=== PATIENT | male | born 1995 | race Caucasian/White ===

== ENCOUNTER → 2022-05-18 14:59 | Outpatient (BNVA) | payer SELFPAY | PROVIDERS: Visit Provider Physician Assistant Medical | DX: Z02.1 Encounter for pre-employment examination (principal) ==

== ENCOUNTER 2022-12-23 13:16 | Emergency (ER) | payer OTHER, MEDICAID, SELFPAY ==
[2022-12-23 13:19] VITALS: BP 122/78; BP 141/92; PULSE 102; PULSE 108; RESP 20; TEMP 37.2; O2SAT 94; O2SAT 95; BMI 27.7
--- NOTE | 2022-12-23 13:41 | PC.NURSE ---
Pt arrived via EMS, pt mom called and was concerned about a text message he had sent, however patient declines SI/HI at this time. PD felt the patient did not need to be sectioned, however patient agreed to come to the hospital. Now that the patient is here he is pacing and upset that he is being kidnapped and here against his will. updated.
--- NOTE | 2022-12-23 14:07 | ED_ITS ---
HPI - Psych General Chief Complaint: Psychiatric Symptoms Stated Complaint: SI Time Seen by Provider: 12/23/22 13:32 Source: patient Mode of arrival: ambulatory History of Present Illness HPI Narrative: 27-year-old male with past medical history of substance abuse presenting to the ED for suspected substance abuse, and mother was concerned about text messages she received from patient. PD on scene and did not need to section patient, c trae to ED willingly. Patient coming from [facility], reports sobriety from ETOH/illicit substances since his admission to this house a few days ago. Denies SI/HI. States woke up outside the sober house, reports he fell asleep outside the doors. Denies injury, CP/SOB, abdominal pain MD complaint: substance abuse Related Data Home Medications Medication Instructions Recorded Confirmed albuterol sulfate 90 mcg/actuation 2 puff inhalation Q4H PRN 12/23/22 12/23/22 aerosol inhaler (ProAir HFA) Shortness Of Breath Or Wheezing amitriptyline 50 mg tablet 50 mg PO BEDTIME insomnia 12/23/22 12/23/22 clonidine HCl 0.2 mg tablet 0.2 mg PO TID PRN anxiety 12/23/22 12/23/22 gabapentin 800 mg tablet 800 mg PO TID 12/23/22 12/23/22 loratadine 10 mg tablet 10 mg PO DAILY PRN allergies 12/23/22 12/23/22 methocarbamol 500 mg tablet 1,000 mg PO TID PRN Pain, Moderate 12/23/22 12/23/22 mirtazapine 15 mg tablet 15 mg PO BEDTIME insomnia 12/23/22 12/23/22 mometasone-formoterol HFA 200 2 puff inhalation DAILY 12/23/22 12/23/22 mcg-5 mcg/actuation aerosol inhaler (Dulera) omeprazole 20 mg capsule,delayed 20 mg PO DAILY@0630 12/23/22 12/23/22 release Allergies Allergy/AdvReac Type Severity Reaction Status Date / Time No Known Allergies Allergy Verified 12/23/22 13:55 Review of Systems Review of Systems: Constitutional: No Fever, No Chills, No Fatigue, No Malaise ENT/Mouth: No Hearing loss, No Ear Pain, No Nasal Congestion, No sore throat, No Rhinorrhea, No Swallowing Difficulty Eyes: No Eye Pain, No Swelling, No Redness, No Vision Changes Cardiovascular: No Chest Pain, No SOB, No Edema, No Palpitations Respiratory: No Cough, No Sputum, No Dyspnea Gastrointestinal: No Nausea, No Vomiting, No Diarrhea, No Constipation, No Abdominal pain Genitourinary: No Dysuria, No Flank Pain, No Urinary Flow Changes, No Hesitancy Musculoskeletal: No joint pain, No Myalgias, No Joint Swelling Skin: No Skin Lesions, No rash Neuro: No Weakness, No Numbness, No Paresthesias, No Loss of Consciousness, No Dizziness, No Headache Psych: No Anxiety/Panic, No Depression, No SI/HI/AH/VH, + Social Issues Yes all other systems are reviewed and are negative Constitutional: Constitutional: Reports as per [facility] Past Medical History Attestation statement: The following information was validated with the patient. Social History Social History Alcohol intake: current Alcohol type: hard liquor Use of substances other than those prescribed or required for medical reasons: No Advance Directives: No Healthcare Proxy: No Guardian: No Physical Exam Vital Signs: Vital Signs: Last Vital Signs Temp 99.2 F 12/23/22 15:47 Pulse 120 H 12/23/22 15:47 Resp 20 12/23/22 13:19 BP 143/82 H 12/23/22 15:47 Pulse Ox 98 12/23/22 15:47 O2 Del Method Room Air 12/23/22 13:19 BMI result Body Mass Index 27.7 Const: Other: Appears under the influence General: cooperative, comfortable and no acute distress Orientation/consciousness: patient oriented x3 HEENT: Head: Yes normal to inspection and Yes atraumatic Ears: hearing grossly normal bilaterally General nose exam: Normal external nose present Face and sinus: Yes normal facial exam Eyes: General: appearance normal, both eyes and all related structures Pupils: Equal, round and reactive pupils present EOM: EOMs intact bilaterally Neck: Neck: Yes normal visual inspection and Yes no meningeal signs Resp: Effort & Inspection: normal respiratory effort and no respiratory distress Auscultation: clear to auscultation bilaterally Cardio: Rate: regular rate Heart sounds: S1 normal heart sound present and S2 normal heart sound present GI: Inspection: Yes normal to inspection Palpation (GI): Soft to palpation, nontender, no guarding and not rigid Skin: Rashes: no rashes Wounds: no wounds Neuro: General: patient oriented x3, gait normal, tone normal, moves all extremities, no meningeal signs, no focal motor deficits and CN's II-XI intact bilaterally Cranial nerves: Yes Equal, round and reactive pupils present Gait exam (Neuro): Normal gait present Extrem: General: Yes normal to inspection Psych: Thought content: suicidality and no homicidality Course Course Course Narrative: -labs reassuring. Tox screen positive for fentanyl, benzos, THC. Ethanol negative -patient was evaluated by care team and recommend [facility] follow-up in the morning. Section 12 signed and in patient's chart, patient becoming agitated. Medicated with 2 mg p.o. Ativan. Physician observation initiated -1800--ED care transferred to CARL Melendez pending [facility]SU follow-up. Medications Administered Generic Name Dose Route Start Last Admin Trade Name Freq PRN Reason Stop Dose Admin Nicotine Polacrilex 4 mg 12/23/22 17:23 12/23/22 17:50 Nicotine Polacrilex 2 Mg Gum BUCCAL 4 mg Q1H PRN Administration Nicotine Cravings Discontinued Medications Generic Name Dose Route Start Last Admin Trade Name Freq PRN Reason Stop Dose Admin Lorazepam 2 mg 12/23/22 17:08 12/23/22 17:12 Lorazepam 1 Mg Tablet PO 12/23/22 17:09 2 mg ONCE ONE Administration Medical Decision Making Medical Decision Making [facility] Narrative: 27-year-old male with past medical history of substance abuse presenting to the ED for suspected substance abuse, and mother was concerned about text messages she received from patient. On exam mildly tachycardic, pacing around behavioral health POD, appears under the influence, cooperative, denies SI/HI. Concern for substance abuse vs depression/reported comments that were concerning to mother. Rule out organic causes Plan: Labs, ethanol, drug screen, CARE team consult Please refer to course for remaining clinical decision making, interpretation of labs/imaging results, and discussions with consultants and/or family members. Differential Diagnosis Differential Diagnoses: The differential diagnosis associated with the presentation includes As above Admission/Observation Consideration of admission/observation: Escalation of care including admission/observation considered Lab Data [facility] Lab Attestation statement: I reviewed the patient's lab results. 12/23/22 14:53 12/23/22 14:53 Labs: Lab Results 12/23/22 12/23/22 12/23/22 Range/Units 13:57 13:57 13:57 WBC (4.8-10.8) X10*3/uL RBC (4.60-5.80) X10*6/uL Hgb (14.0-18.0) g/dl Hct (42.0-52.0) % MCV (80.0-98.0) fL MCH (27.0-33.0) pg MCHC (31.0-36.0) g/dl RDW (11.0-16.0) % Plt Count (160-400) X10*3/uL MPV (9.4-12.4) fL Immature Gran % (Auto) (0.0-0.4) % Neut % (Auto) (45-73) % Lymph % (Auto) (20-40) % [place] % (Auto) (2-11) % Eos % (Auto) (0-4) % Baso % (Auto) (0-2) % Lymph # (Auto) (1.2-4.9) X10*3/uL [place] # (Auto) (0.1-1.2) X10*3/uL Eos # (Auto) (0.0-0.4) X10*3/uL Baso # (Auto) (0.0-0.2) X10*3/uL Abs Immat Gran (auto) (0.00-0.03) X10*3/uL Absolute Neuts (auto) (2.0-8.3) x10*3/uL Absolute Nucleated RBC (0.0-0.012) X10*3/uL Nucleated RBC % (auto) (0.0-0.2) /100WBC Sodium (135-145) mmol/L Potassium (3.3-5.1) mmol/L Chloride (96-108) mmol/L Carbon Dioxide (22-29) mmol/L Anion Gap (12-20) BUN (9-16) mg/dL Creatinine (0.5-1.4) mg/dL Estim Creat Clear Calc Estimated GFR Random Glucose (60-115) mg/dL Calcium (8.4-10.2) mg/dL Total Bilirubin (0.0-1.0) mg/dL Direct Bilirubin (0.0-0.5) mg/dL AST (5-37) U/L ALT (0-40) U/L Alkaline Phosphatase (39-117) U/L Total Protein (6.5-8.0) g/dL Albumin (3.5-5.0) g/dL Urine Color Yellow Urine Appearance Clear Urine pH 6.0 (5.0-9.0) Ur Specific [place] 1.020 (1.005-1.025) Urine Protein Negative (Neg-Trace) mg/dL Urine Glucose (UA) Negative (Negative) mg/dL Urine Ketones Negative (Negative) mg/dL Urine Blood Negative (Negative) Urine Nitrite Negative (Negative) Ur Leukocyte Esterase Negative (Negative) Salicylates (15-30) mg/dL Urine Opiates Screen Not Detected (Not Detect) Urine Fentanyl Screen POSITIVE H (Not Detect) Acetaminophen (<30) mcg/mL Ur Barbiturates Screen Not Detected (Not Detect) Ur Phencyclidine Scrn Not Detected (Not Detect) Ur Amphetamines Screen Not Detected (Not Detect) U Benzodiazepines Scrn POSITIVE H (Not Detect) Urine Cocaine Screen Not Detected (Not Detect) U Marijuana (THC) Screen POSITIVE H (Not Detect) Ethyl Alcohol mg/dL COVID-19 (DAI) Negative (Negative) COVID-19 Clin Com See Note 12/23/22 12/23/22 Range/Units 14:53 14:53 WBC 6.2 (4.8-10.8) X10*3/uL RBC 5.15 (4.60-5.80) X10*6/uL Hgb 16.1 (14.0-18.0) g/dl Hct 46.9 (42.0-52.0) % MCV 91.1 (80.0-98.0) fL MCH 31.3 (27.0-33.0) pg MCHC 34.3 (31.0-36.0) g/dl RDW 11.4 (11.0-16.0) % Plt Count 312 (160-400) X10*3/uL MPV 8.5 L (9.4-12.4) fL Immature Gran % (Auto) 0.2 (0.0-0.4) % Neut % (Auto) 45.8 (45-73) % Lymph % (Auto) 43.2 H (20-40) % [place] % (Auto) 5.3 (2-11) % Eos % (Auto) 4.0 (0-4) % Baso % (Auto) 1.5 (0-2) % Lymph # (Auto) 2.7 (1.2-4.9) X10*3/uL [place] # (Auto) 0.3 (0.1-1.2) X10*3/uL Eos # (Auto) 0.3 (0.0-0.4) X10*3/uL Baso # (Auto) 0.1 (0.0-0.2) X10*3/uL Abs Immat Gran (auto) 0.01 (0.00-0.03) X10*3/uL Absolute Neuts (auto) 2.8 (2.0-8.3) x10*3/uL Absolute Nucleated RBC 0.000 (0.0-0.012) X10*3/uL Nucleated RBC % (auto) 0.0 (0.0-0.2) /100WBC Sodium 143 (135-145) mmol/L Potassium 4.7 (3.3-5.1) mmol/L Chloride 105 (96-108) mmol/L Carbon Dioxide 30 H (22-29) mmol/L Anion Gap 13 (12-20) BUN 13 (9-16) mg/dL Creatinine 1.13 (0.5-1.4) mg/dL Estim Creat Clear Calc 109.9 Estimated GFR > 60 Random Glucose 96 (60-115) mg/dL Calcium 9.8 (8.4-10.2) mg/dL Total Bilirubin 0.3 (0.0-1.0) mg/dL Direct Bilirubin < 0.2 (0.0-0.5) mg/dL AST 20 (5-37) U/L ALT 13 (0-40) U/L Alkaline Phosphatase 93 (39-117) U/L Total Protein 7.2 (6.5-8.0) g/dL Albumin 4.7 (3.5-5.0) g/dL Urine Color Urine Appearance Urine pH (5.0-9.0) Ur Specific [place] (1.005-1.025) Urine Protein (Neg-Trace) mg/dL Urine Glucose (UA) (Negative) mg/dL Urine Ketones (Negative) mg/dL Urine Blood (Negative) Urine Nitrite (Negative) Ur Leukocyte Esterase (Negative) Salicylates < 5.0 L (15-30) mg/dL Urine Opiates Screen (Not Detect) Urine Fentanyl Screen (Not Detect) Acetaminophen < 17 (<30) mcg/mL Ur Barbiturates Screen (Not Detect) Ur Phencyclidine Scrn (Not Detect) Ur Amphetamines Screen (Not Detect) U Benzodiazepines Scrn (Not Detect) Urine Cocaine Screen (Not Detect) U Marijuana (THC) Screen (Not Detect) Ethyl Alcohol < 10 mg/dL COVID-19 (DAI) (Negative) COVID-19 Clin Com Radiology Impression Discussion of test interpretation with radiology: I have reviewed the radiologist's reading. External Record Review External record reviewed: Inpatient record, Office record, Outpatient record, Prior outpatient labs, Prior outpatient radiology, Primary care record and Outsi de ED record Discharge Plan Discharge Clinical Impression: Substance abuse Patient Disposition: Still a Patient Prescriptions: No Action gabapentin 800 mg tablet 800 mg PO TID amitriptyline 50 mg tablet 50 mg PO BEDTIME clonidine HCl 0.2 mg tablet 0.2 mg PO TID PRN (Reason: anxiety) mirtazapine 15 mg tablet 15 mg PO BEDTIME methocarbamol 500 mg tablet 1,000 mg PO TID PRN (Reason: Pain, Moderate) omeprazole 20 mg capsule,delayed release(DR/EC) 20 mg PO DAILY@0630 albuterol sulfate [ProAir HFA] 90 mcg/actuation HFA aerosol inhaler 2 puff INHALATION Q4H PRN (Reason: Shortness Of Breath Or Wheezing) loratadine 10 mg tablet 10 mg PO DAILY PRN (Reason: allergies) Dulera 200-5 mcg/actuation HFA aerosol inhaler 2 puff INHALATION DAILY Interventions: [place]-Suicide Risk Severity Scale Last Done: 12/23/22 13:39
[2022-12-23 14:09] LABS: Appearance Urine Clear; Color Urine Yellow; Glucose Urine UA Negative (Negative); Leukocyte Esterase Urine Negative (Negative); Nitrite Urine Negative (Negative); Urine Blood Negative (Negative); Urine Ketones Negative (Negative); Urine Protein Negative (Neg-Trace)
[2022-12-23 14:17] LABS: COVID-19 Test Negative (Negative); IDNOW Serial# BCCEAD1C
[2022-12-23 14:40] LABS: Amphetamine Screen Urine Not Detected (Not Detect); Barbiturates, Urine Not Detected (Not Detect); Benzodiazepines Screen Urine POSITIVE (Not Detect); Cannabinoid Screen Urine POSITIVE (Not Detect); Cocaine Screen Urine Not Detected (Not Detect); Fentanyl, urine POSITIVE (Not Detect); Opiate Screen Urine Not Detected (Not Detect); Phencyclidine Screen Urine Not Detected (Not Detect)
--- NOTE | 2022-12-23 14:42 | PC.NURSE ---
PT'S MOTHER (VALDO [phone]) CALLED. LEFT HER PHONE NUMBER IF ANY QUESTIONS.
[2022-12-23 14:57] LABS: MANUAL DIFF FLAG NO
[2022-12-23 14:59] LABS: Basophils Absolute Auto 0.1 X10*3/uL (0.0-0.2); Basophils Percent Auto 1.5 % (0-2); Eosinophils Absolute Auto 0.3 X10*3/uL (0.0-0.4); Hematocrit 46.9 % (42.0-52.0); Hemoglobin 16.1 g/dl (14.0-18.0); Imm Gran Abs Auto 0.01 X10*3/uL (0.00-0.03); Imm Gran Pct Auto 0.2 % (0.0-0.4); Lymphocytes Absolute Auto 2.7 X10*3/uL (1.2-4.9); Lymphocytes Percent Auto 43.2 % (20-40); Mean Corpuscular HGB Conc 34.3 g/dl (31.0-36.0); Mean Corpuscular Hemoglobin 31.3 pg (27.0-33.0); Mean Corpuscular Volume 91.1 fL (80.0-98.0); Mean Platelet Volume 8.5 fL (9.4-12.4); Monocytes Absolute Auto 0.3 X10*3/uL (0.1-1.2); Monocytes Percent Auto 5.3 % (2-11); Neutrophils Absolute Auto 2.8 x10*3/uL (2.0-8.3); Neutrophils Percent Auto 45.8 % (45-73); Platelet Count 312 X10*3/uL (160-400); Red Blood Count 5.15 X10*6/uL (4.60-5.80); Red Cell Distribution Width 11.4 % (11.0-16.0); White Blood Count 6.2 X10*3/uL (4.8-10.8)
[2022-12-23 15:26] LABS: Alanine Aminotransferase 13 U/L (0-40); Albumin Level 4.7 g/dL (3.5-5.0); Alkaline Phosphatase 93 U/L (39-117); Anion Gap 13 (12-20); Aspartate Amino Transferase 20 U/L (5-37); Bilirubin Direct < 0.2 mg/dL (0.0-0.5); Bilirubin Total 0.3 mg/dL (0.0-1.0); Blood Urea Nitrogen 13 mg/dL (9-16); Calcium 9.8 mg/dL (8.4-10.2); Carbon Dioxide 30 mmol/L (22-29); Chloride 105 mmol/L (96-108); Creatinine Clr Calc Pharmacy 109.9; Estimated Glomerular Filt Rate > 60; Ethanol < 10 mg/dL; Glucose Random 96 mg/dL (60-115); Potassium 4.7 mmol/L (3.3-5.1); Sodium 143 mmol/L (135-145); Total Protein 7.2 g/dL (6.5-8.0)
[2022-12-23 15:47] VITALS: BP 143/82; PULSE 120; TEMP 37.3; O2SAT 98
--- NOTE | 2022-12-23 15:57 | PC.NURSE ---
Care team clinician to bedside for eval.
[2022-12-23 16:27] LABS: Acetaminophen LAB < 17 mcg/mL (<30); Salicylate < 5.0 mg/dL (15-30)
--- NOTE | 2022-12-23 17:01 | PC.NURSE ---
Plan per CARE team is to re-eval tomorrow. Section 12 filled out and on chart, provider in agreement with plan.
[2022-12-23] MEDS: LORazepam 1 MG TABLET 2 MG PO ×2 (17:12→19:23)
[2022-12-23] MEDS: Nicotine Polacrilex 2 MG GUM 4 MG BUCCAL (17:50)
--- NOTE | 2022-12-23 18:07 | PHA.MEDREC ---
Pharmacy Consult ? Medication Reconciliation Pharmacy has completed the medication reconciliation. Reviewed med rec done by nursing (Celina). Patient confirmed medications.
--- NOTE | 2022-12-23 18:17 | PC.NURSE ---
Pt perseverative about being in the pod because he was sleepwalking pt displaying signs of short term memory loss, repeating questions that already have been answered, fixated on a human rights phone number not being on the wall. Pt provided with complaint line phone number. Pt labile, alternatively pleasant and angry.
[2022-12-23] MEDS: Gabapentin 400 MG CAPSULE 800 MG PO (19:23)
[2022-12-23] MEDS: Mirtazapine 15 MG TABLET PO (19:23)
[2022-12-23] MEDS: cloNIDine HCL 0.2 MG TABLET PO (20:11)
[2022-12-23] MEDS: Amitriptyline HCl 50 MG TABLET PO (20:11)
[2022-12-23] MEDS: methocarbamoL 500 MG TABLET 1000 MG PO (20:12)
[2022-12-23 20:15] VITALS: BP 143/93; PULSE 101; RESP 20; O2SAT 98
[2022-12-24 05:40] VITALS: BP 118/85; PULSE 79; RESP 18; O2SAT 98
[2022-12-24] MEDS: Omeprazole 20 MG CAPSULE.DR PO (05:58)
--- NOTE | 2022-12-24 06:08 | PC.NURSE ---
Patient slept through the night, no distress observed/reported, behavior confrontational and argumentative, constantly threatening to [facility] for keeping him here in the pod, patient was made aware why he is here and copy of section given to the patient, patient was seen by care team disposition pending/re-eval in the morning, patient has poor insight, Ativan 2 mg po administered at 1923 with + effect, medication compliant, will continue to monitor.
[2022-12-24] MEDS: Gabapentin 400 MG CAPSULE 800 MG PO ×3 (09:22→17:52)
[2022-12-24] MEDS: cloNIDine HCL 0.2 MG TABLET PO ×2 (10:10→17:22)
[2022-12-24] MEDS: LORazepam 1 MG TABLET 2 MG PO ×2 (10:10→13:44)
--- NOTE | 2022-12-24 10:30 | HE.PHANOTE ---
[facility]. PATIENT DOSE IS 140MG. GIVEN THREE BOTTLES ON 12/21 Don
[2022-12-24] MEDS: methADONE HCl 20 MG/2 ML ORAL.CONC 140 MG PO (10:31)
[2022-12-24] MEDS: Nicotine Polacrilex 2 MG GUM 4 MG BUCCAL ×2 (10:42→13:45)
--- NOTE | 2022-12-24 13:42 | MHC.CARE ---
patient to remain in ED, adult inpt LOC at this time, contact with [facility] needs to [facility] established prior to considering patient's return there. recent d/c from inpt w immediate relapse and mood lability, hx of several suicide attempts
[2022-12-24] MEDS: methocarbamoL 500 MG TABLET 1000 MG PO ×2 (13:53→21:25)
--- NOTE | 2022-12-24 14:06 | PC.NURSE ---
pt told by CARE team that he is a bed search, pt medicated w prn ativan at his request, he made a couple phone calls, agitated at times, keeps talking about how its unfair that he sleep walked and now he's a bed search
--- NOTE | 2022-12-24 15:39 | PC.NURSE ---
report received from MIKE Govea Pt is resting comfortably on bed at this time, no apparent distress
[2022-12-24 17:16] VITALS: BP 137/91; PULSE 95; RESP 20; TEMP 36.6; O2SAT 98
[2022-12-24] MEDS: LORazepam 1 MG TABLET PO (17:23)
--- NOTE | 2022-12-24 17:32 | PC.NURSE ---
pt exited room and became upset stating I still don't get why I am here, no one is helping me, I shouldn't be here . This RN spoke with patient regarding situations and educated patient on plan to see if the sober house will allow him back. Pt requesting something to calm down, aware, verbal order for Ativan 1mg, administered per MAR as well as PRN Clonidine. Pt calmer at this time and understanding of plan
--- NOTE | 2022-12-24 19:05 | PC.NURSE ---
pt sleeping at this time, respirations even and unlabored, skin pwd
[2022-12-24] MEDS: Amitriptyline HCl 50 MG TABLET PO (20:05)
[2022-12-24] MEDS: Mirtazapine 15 MG TABLET PO (20:05)
[2022-12-24] MEDS: OLANZapine 10 MG VIAL IM (20:25)
--- NOTE | 2022-12-24 21:35 | PC.NURSE ---
Late entry: pt agitated due to not being able to leave, pt educated on section 12 and provided with a copy of his section. Pt crumpled paper and threw it. Pt was re-directed to sit back down and discuss the issue. Pt agreeable to taking Zyprexa to assist with helping him feel calm and fall asleep. Pt is now asleep at this time, respirations even and unlabored, skin pwd, no apparent distress
[2022-12-25] MEDS: Melatonin 3 MG TABLET 9 MG PO (00:40)
--- NOTE | 2022-12-25 01:08 | PC.NURSE ---
pt reporting increased agitation after waking up, requesting melatonin, administered per MAR. No apparent distress at this time, respirations even and unlabored, skin pwd
[2022-12-25 06:18] VITALS: RESP 18
[2022-12-25] MEDS: Omeprazole 20 MG CAPSULE.DR PO (07:13)
[2022-12-25] MEDS: Gabapentin 400 MG CAPSULE 800 MG PO ×3 (07:13→15:40)
[2022-12-25] MEDS: cloNIDine HCL 0.2 MG TABLET PO ×3 (07:31→20:18)
[2022-12-25] MEDS: LORazepam 1 MG TABLET PO ×4 (07:54→20:18)
[2022-12-25] MEDS: methADONE HCl 20 MG/2 ML ORAL.CONC 140 MG PO (07:54)
[2022-12-25] MEDS: Nicotine Polacrilex 2 MG GUM 4 MG BUCCAL ×5 (08:02→20:18)
--- NOTE | 2022-12-25 08:18 | PC.NURSE ---
Pt anxious this AM. Slammed bathroom door. Wanting anxiety meds carmen. notified. Meds obtained. Pt back to bed. Reports not eating breakfast. Seems to be sleeping at this time.
[2022-12-25] MEDS: methocarbamoL 500 MG TABLET 1000 MG PO ×3 (09:04→20:18)
--- NOTE | 2022-12-25 10:30 | ECG_ITS ---
Test Reason : check prolong qt Blood Pressure : / mmHG Vent. Rate : 067 BPM Atrial Rate : 067 BPM P-R Int : 160 ms QRS Dur : 092 ms QT Int : 386 ms P-R-T Axes : 051 030 031 degrees QTc Int : 407 ms Normal sinus rhythm Normal ECG No previous ECGs available Referred By: Prashant Bonilla Electronically Signed By:CHARLES TURNER MD
--- NOTE | 2022-12-25 10:43 | MHC.CARE ---
CARE Team spoke with Pts mother who reported she spoke with staff at [facility], Pt will not be eligible to return until he completes longer term substance use treatment program. She reported the [facility] recommend a Section 35. Pts mother asked if the hospital could file a Section 35 on his behalf, t/w educated Pts mother that the hospital would not be able to complete Section 35.
[2022-12-25] MEDS: OLANZapine 5 MG TABLET PO ×2 (14:06→20:18)
[2022-12-25] MEDS: Amitriptyline HCl 50 MG TABLET PO (20:18)
[2022-12-25] MEDS: Mirtazapine 15 MG TABLET PO (20:18)
[2022-12-25 20:22] VITALS: BP 142/99; PULSE 118; RESP 19; TEMP 36.6; O2SAT 96
--- NOTE | 2022-12-26 05:53 | PC.NURSE ---
Patient slept through the night, no distress observed/reported, behavior unpredictable escalates easily, mood labile, verbally abusive to staff member, disposition per care team is discharge back [facility] but house is concern with poly-substance problem, there is possibility that the mother may file section 35 today, medication compliant, utilizes his all prn medication, will continue to monitor
[2022-12-26] MEDS: Omeprazole 20 MG CAPSULE.DR PO (06:11)
[2022-12-26 07:36] VITALS: BP 121/87; PULSE 92; RESP 15; TEMP 36.6; O2SAT 97
[2022-12-26] MEDS: Nicotine Polacrilex 2 MG GUM 4 MG BUCCAL (07:44)
[2022-12-26] MEDS: cloNIDine HCL 0.2 MG TABLET PO (07:44)
[2022-12-26] MEDS: methocarbamoL 500 MG TABLET 1000 MG PO (07:46)
[2022-12-26] MEDS: Gabapentin 400 MG CAPSULE 800 MG PO (07:46)
[2022-12-26] MEDS: OLANZapine 5 MG TABLET PO (07:47)
[2022-12-26] MEDS: LORazepam 1 MG TABLET PO (07:47)
[2022-12-26] MEDS: methADONE HCl 20 MG/2 ML ORAL.CONC 140 MG PO (09:04)
--- NOTE | 2022-12-26 10:11 | MHC.CARE ---
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 Provider updated.
== END 2022-12-26 10:46 | disposition home or self-care (01) ==
PROVIDERS: Physician Assistant; Emergency Provider Emergency Medicine
DX: F19.10 Other psychoactive substance abuse, uncomplicated (principal); R45.851 Suicidal ideations; F41.9 Anxiety disorder, unspecified; R45.1 Restlessness and agitation; R00.0 Tachycardia, unspecified; F11.20 Opioid dependence, uncomplicated; Z20.822 Contact with and (suspected) exposure to COVID-19; Z79.899 Other long term (current) drug therapy
CPT/HCPCS: 36415; 80048; 80076; 80143; 80179; 80307; 81003; 82077; 85025; 87635; 93005; 96372; 99285; S9485

== ENCOUNTER 2023-02-16 05:02 | Emergency (ER) | payer OTHER, MEDICAID, SELFPAY ==
[2023-02-16] VITALS (9 sets, daily range): BP systolic 107–135; BP diastolic 61–73; PULSE 115–121; RESP 12–22; TEMP 37.4–38.6; O2SAT 96–99; BMI 33.2
--- NOTE | ~2023-02-16 | XR_ITS ---
EXAMINATION: XR CHEST CLINICAL INFORMATION: Fever COMPARISON: 07/10/2012 TECHNIQUE: Frontal view of the chest was obtained. FINDINGS: The lungs are clear with no focal consolidation. No evidence of pneumothorax, pulmonary edema, or pleural effusions. The cardiomediastinal silhouette is unremarkable. No acute osseous findings. XR/XR chest 1V IMPRESSION: No acute cardiopulmonary findings.
--- NOTE | 2023-02-16 05:00 | PC.NURSE ---
Pt arrives via EMS in physical restraints. Aggressive and combative behavior. Making SI statements. MD at bedside.
--- NOTE | 2023-02-16 05:23 | ED_ITS ---
HPI - Psych General Stated Complaint: si Time Seen by Provider: 02/16/23 05:22 Source: patient, EMS and police Mode of arrival: EMS Limitations: no limitations History of Present Illness HPI Narrative: 27-year-old male came in by the police/EMS handcuffed, patient has been homeless for the past couple days as per mother patient made suicidal statements and the plan is to take all his medication once, patient came in [place], mother is planning on filing [place] [address] a[address]m.. Related Data Home Medications Medication Instructions Recorded Confirmed albuterol sulfate 90 mcg/actuation 2 puff inhalation Q4H PRN 12/23/22 12/23/22 aerosol inhaler (ProAir HFA) Shortness Of Breath Or Wheezing amitriptyline 50 mg tablet 50 mg PO BEDTIME insomnia 12/23/22 12/23/22 clonidine HCl 0.2 mg tablet 0.2 mg PO TID PRN anxiety 12/23/22 12/23/22 gabapentin 800 mg tablet 800 mg PO TID 12/23/22 12/23/22 loratadine 10 mg tablet 10 mg PO DAILY PRN allergies 12/23/22 12/23/22 methocarbamol 500 mg tablet 1,000 mg PO TID PRN Pain, Moderate 12/23/22 12/23/22 mirtazapine 15 mg tablet 15 mg PO BEDTIME insomnia 12/23/22 12/23/22 mometasone-formoterol HFA 200 2 puff inhalation DAILY 12/23/22 12/23/22 mcg-5 mcg/actuation aerosol inhaler (Dulera) omeprazole 20 mg capsule,delayed 20 mg PO DAILY@0630 12/23/22 12/23/22 release methadone 10 mg/mL oral 140 mg PO DAILY 12/24/22 12/24/22 concentrate (Methadone Intensol) Allergies Allergy/AdvReac Type Severity Reaction Status Date / Time chlorpromazine Allergy Hives Verified 12/24/22 14:26 [From Thorazine] haloperidol [From Haldol] Allergy Hives Verified 12/24/22 14:27 Review of Systems Review of Systems: All other systems are reviewed and are negative Constitutional: Reports as per HPI and Reports no additional constitutional complaints Eyes: Reports as per HPI and Reports no additional eye complaints Reports system reviewed and no additional complaints, except as documented Cardiovascular: Reports as per HPI and Reports no additional cardiovascular complaints Respiratory: Reports as per HPI and Reports no additional respiratory complaints Gastrointestinal: Reports as per HPI and Reports no additional gastrointestinal complaints Genitourinary: Reports no additional female genitourinary complaints Musculoskeletal: Reports no additional musculoskeletal complaints Skin/Breast: Reports system reviewed and no additional complaints, except as docu Psychiatric: Reports no additional psychiatric complaints Endocrine: Reports no additional endocrine complaints Hematologic/Lymphatic: Reports no additional hematologic/lymphatic complaints Allergic/Immunologic: Reports no additional allergic/immunologic complaints Reports system reviewed and no additional complaints, except as documented and Reports Abnormal speech present [facility] Social History Social History Alcohol intake: current Alcohol type: hard liquor Physical Exam Vital Signs: Vital Signs: Vital signs have been reviewed as appeared to be correct. Blood pressure normal. Heart rate normal. Respiration rate normal. Temperature normal. Oxygen saturation normal. Appearance: Alert. Oriented X3. No acute distress. Head: Normal external exam. Normocephalic. Atraumatic. No Bucio signs noted. No raccoon eyes noted Eyes: PERRLA. EOMI. Conjunctiva and sclera normal. Eyelids normal. ENT: TM's Normal. Pharynx normal. Uvula midline. Moist mucous membranes. No trismus noted. No drooling noted. No muffled voice noted. Neck: Normal inspection. Neck supple. FROM. No adenopathy. Thyroid Normal. No meningeal signs. No neck mass noted. CVS: Normal heart rate and rhythm. Heart sound normal. No murmurs noted. Pulses normal throughout. Respiratory: No respiratory distress. Painless inspiration. Breath sounds normal. No wheezes/rales/rhonchi noted. Chest nontender. No accessory muscle usage noted or decreased air movement noted. Abdomen: Soft and nontender. Bowel sounds normal in all 4 quadrants. No distention noted. No organomegaly noted. No visible injury noted. Back: No CVA tenderness. Full range of motion noted. Skin: Skin warm and dry. Normal skin color. Normal skin turgor. No rashes/lesions/lacerations noted. Extremities: No lower extremity edema. Extremities exhibit normal range of motion. Extremities nontender. Neuro: Oriented X 3. Cranial nerve exam: II-XII are grossly intact No motor deficit. No sensory deficit. Reflexes normal. Patient Orientation: Person, Place, Time and Situation, okay hygiene and grooming. Fair eye contact, attentive, no tics or tremors. Level of Consciousness: Awake, Appropriate and Alert Patient Behavior: Appropriate, Guarded, Cooperative and Anxious Mood Description: Constricted, Blunted and Apprehensive Affect Description: Constricted, Blunted and Apprehensive Patient Cognition Impaired: No Ability to Follow Directions: Excellent Speech Pattern: Clear, Appropriate and Spontaneous Speech, nonpressured, spontaneous with regular rate and rhythm, normal volume and prosody. No dysarthria. Memory Description: Intact, Immediate Intact and Short Term Intact Hallucinations: None Delusions: Not Present Thought Process: Intact Thought Content: positive for Intact, positive for Logical, denies Homicidal Ideation, as per mother and the police patient made suicidal statement and planning to take all his pills to kill himself. Depressive Symptoms: Not present. Judgement and Insight: Limited but adequate. Medical Decision Making Differential Diagnosis Differential Diagnoses: The differential diagnosis associated with the presentation includes (SI, HI, substance abuse.) Discharge Plan Discharge Clinical Impression: Suicidal ideation, Substance abuse Patient Disposition: Still a Patient Prescriptions: No Action gabapentin 800 mg tablet 800 mg PO TID amitriptyline 50 mg tablet 50 mg PO BEDTIME clonidine HCl 0.2 mg tablet 0.2 mg PO TID PRN (Reason: anxiety) mirtazapine 15 mg tablet 15 mg PO BEDTIME methocarbamol 500 mg tablet 1,000 mg PO TID PRN (Reason: Pain, Moderate) omeprazole 20 mg capsule,delayed release(DR/EC) 20 mg PO DAILY@0630 albuterol sulfate [ProAir HFA] 90 mcg/actuation HFA aerosol inhaler 2 puff INHALATION Q4H PRN (Reason: Shortness Of Breath Or Wheezing) loratadine 10 mg tablet 10 mg PO DAILY PRN (Reason: allergies) Dulera 200-5 mcg/actuation HFA aerosol inhaler 2 puff INHALATION DAILY methadone [Methadone Intensol] 10 mg/mL Concentrate 140 mg PO DAILY
--- NOTE | 2023-02-16 05:45 | PC.NURSE ---
Decreased agitation noted. Assessed to remove restraints. Pt became aggressive and combative again. aware.
--- NOTE | 2023-02-16 06:00 | PC.NURSE ---
Pt agrees to remain calm and cooperative. Bilateral lower extremity removed. No complications/injuries noted.
[2023-02-16 06:03] LABS: MANUAL DIFF FLAG NO
[2023-02-16 06:08] LABS: Basophils Absolute Auto 0.1 X10*3/uL (0.0-0.2); Basophils Percent Auto 0.7 % (0-2); Eosinophils Absolute Auto 0.1 X10*3/uL (0.0-0.4); Eosinophils Percent Auto 1.4 % (0-4); Hematocrit 36.4 % (42.0-52.0); Hemoglobin 12.6 g/dl (14.0-18.0); Imm Gran Abs Auto 0.02 X10*3/uL (0.00-0.03); Imm Gran Pct Auto 0.2 % (0.0-0.4); Lymphocytes Absolute Auto 1.2 X10*3/uL (1.2-4.9); Lymphocytes Percent Auto 14.1 % (20-40); Mean Corpuscular HGB Conc 34.6 g/dl (31.0-36.0); Mean Corpuscular Hemoglobin 31.4 pg (27.0-33.0); Mean Corpuscular Volume 90.8 fL (80.0-98.0); Mean Platelet Volume 8.6 fL (9.4-12.4); Monocytes Absolute Auto 0.7 X10*3/uL (0.1-1.2); Monocytes Percent Auto 8.1 % (2-11); Neutrophils Absolute Auto 6.6 x10*3/uL (2.0-8.3); Neutrophils Percent Auto 75.5 % (45-73); Platelet Count 276 X10*3/uL (160-400); Red Blood Count 4.01 X10*6/uL (4.60-5.80); Red Cell Distribution Width 12.7 % (11.0-16.0); White Blood Count 8.7 X10*3/uL (4.8-10.8)
[2023-02-16] MEDS: Acetaminophen 325 MG TABLET 975 MG PO (06:08)
[2023-02-16 06:10] LABS: COVID-19 Test Negative (Negative); IDNOW Serial# 6674DD1D
[2023-02-16 06:14] LABS: Lactic Acid 0.9 mmol/L (0.5-2.0)
--- NOTE | 2023-02-16 06:15 | PC.NURSE ---
Right arm restraint removed. Pt remains calm. Req ice cream. Ice cream provided.
[2023-02-16 06:18] LABS: Ethanol < 10 mg/dL
--- NOTE | 2023-02-16 06:30 | PC.NURSE ---
All restraints removed. No injuries noted. Pt is able to move all extremities with no complications. aware.
[2023-02-16] MEDS: LORazepam 1 MG TABLET 2 MG PO (07:43)
[2023-02-16 08:07] LABS: Amphetamine Screen Urine Not Detected (Not Detect); Barbiturates, Urine Not Detected (Not Detect); Benzodiazepines Screen Urine POSITIVE (Not Detect); Cannabinoid Screen Urine POSITIVE (Not Detect); Cocaine Screen Urine POSITIVE (Not Detect); Fentanyl, urine POSITIVE (Not Detect); Opiate Screen Urine Not Detected (Not Detect); Phencyclidine Screen Urine Not Detected (Not Detect)
[2023-02-16] MEDS: OLANZapine ODT 10 MG TAB.RAPDIS 20 MG TRANSLINGU (08:19)
--- NOTE | 2023-02-16 08:19 | HE.PHANOTE ---
RE: methadone Received verification form from [facility] last dose 02/15/23 for 140mg
[2023-02-16] MEDS: methADONE HCl 20 MG/2 ML ORAL.CONC 140 MG PO (08:23)
== END 2023-02-16 09:43 ==
PROVIDERS: Emergency Provider Emergency Medicine
DX: R45.851 Suicidal ideations (principal); F19.10 Other psychoactive substance abuse, uncomplicated; Z20.822 Contact with and (suspected) exposure to COVID-19; F41.9 Anxiety disorder, unspecified; F11.20 Opioid dependence, uncomplicated; Z79.899 Other long term (current) drug therapy
CPT/HCPCS: 36415; 71045; 80307; 83605; 85025; 87040; 87635; 96372; 99285; S9485

== ENCOUNTER 2024-03-07 17:56 | Inpatient (IN) | payer OTHER, SELFPAY ==
--- NOTE | 2024-03-07 | ECG_ITS ---
Test Reason : QTC Blood Pressure : / mmHG Vent. Rate : 071 BPM Atrial Rate : 071 BPM P-R Int : 156 ms QRS Dur : 090 ms QT Int : 404 ms P-R-T Axes : 050 023 033 degrees QTc Int : 439 ms Normal sinus rhythm Nonspecific T wave abnormality Abnormal ECG When compared with ECG of 25-DEC-2022 13:06, No significant change was found Referred By: Caitlin Lujan Electronically Signed By:Jani Bal
--- NOTE | ~2024-03-07 | US_ITS ---
EXAMINATION: US VENOUS ULTRASOUND WITH DOPPLER LOWER EXTREMITY, LEFT CLINICAL INFORMATION: Calf pain and swelling COMPARISON: None available. TECHNIQUE: Ultrasound of the deep veins is performed from the hip to the calf with compression sonography and color and pulse Doppler assessment. Spectral analysis with color-flow imaging is performed. FINDINGS: There is normal venous compression and respiratory variation and augmented flow. The visualized common femoral vein, superficial femoral vein, profunda femoral vein, popliteal vein, and the trifurcation region shows no evidence of deep venous thrombosis. There is no significant popliteal fossa cyst. Contralateral common femoral vein is patent. If the patient's symptoms persist, followup ultrasound in 5 days 7 days might be of value to exclude proximal propagation from a non-visualized calf vein. US/US venous duplex LE LT IMPRESSION: No DVT demonstrated in the left lower extremity.
--- NOTE | ~2024-03-07 | XR_ITS ---
EXAMINATION: XR TIBIA AND FIBULA, LEFT CLINICAL INFORMATION: Tender to palpation distal anterior tibia COMPARISON: None available. TECHNIQUE: AP and lateral views of the left tibia and fibula were obtained. FINDINGS: Surgical tacks or anchors seen in the proximal tibia and fibula. No fracture or dislocation. Normal joint spaces. Normal soft tissues. XR/XR tibia fibula LT 2V IMPRESSION: No fracture or dislocation. Surgical tacks in the proximal tibia and fibula.
[2024-03-07 18:11] VITALS: BP 135/76; PULSE 102; RESP 18; TEMP 36.6; O2SAT 99
[2024-03-07 18:19] VITALS: BMI 29.9
[2024-03-07] MEDS: Benztropine Mesylate 1 MG TABLET PO (18:40)
[2024-03-07] MEDS: Benztropine Mesylate 2 MG/2 ML VIAL 1 MG IM (19:09)
--- NOTE | 2024-03-07 19:24 | PC.ADMIT ---
Antonio is a 28-year-old male admitted from [facility] to M3 on a CV for treatment of major depressive disorder and overdose on prescription medications. Pt immediately signed a 3 day on arrival. Pt was initially brought to [facility] ED after being found unresponsive at [facility] longterm. Staff reported that he was arousable to a sternum rub on scene and surrounded by unknown pills on the floor and bed. Pt was intubated and admitted to CCU for observation. Pt denies that this was a suicide attempt and stated I just was really drunk and I passed out but I didn't take anything. Pt denied substance use. Tox screen positive for benzos, fentanyl, methadone, opiates and THC. Upon arrival to the unit, pt was pleasant, calm and cooperative. Pt was initially cooperative with admission process but immediately asked to stop due to him experiencing a dystonic reaction. Pt reported they gave me Haldol at the other hospital and this keeps happening to me. Pt's muscles became rigid, pt's mouth became distorted and pt had difficulty talking. Pt asked to stop admission process and was unable to answer any additional assessment questions. Kacey Lujan notified, pt received Cogentin 1mg PO at 1840. Pt was still experiencing discomfort and was given 1mg Cogentin IM at 1909. Prior to dystonic reaction, pt was alert, oriented, pleasant and cooperative. Thoughts were linear and organized, broad affect. No signs of psychosis observed. Pt denied SI/HI/AH/VH. Pt placed on 15 minute safety checks.
[2024-03-07] MEDS: OLANZapine 5 MG TABLET PO (20:12)
[2024-03-07] MEDS: Gabapentin 100 MG CAPSULE 200 MG PO (20:13)
[2024-03-07 20:15] VITALS: BP 124/83; PULSE 93; RESP 18; TEMP 36.6; O2SAT 100
[2024-03-07] MEDS: cloNIDine HCL 0.2 MG TABLET PO (20:15)
[2024-03-07] MEDS: Gabapentin 600 MG TABLET PO (20:46)
[2024-03-07] MEDS: traZODone HCL 50 MG TABLET PO (20:46)
[2024-03-07] MEDS: LORazepam 0.5 MG TABLET PO (20:46)
--- NOTE | 2024-03-07 21:38 | HE.PHANOTE ---
Re Methadone Received Verification form. Pt received 140mg this morning at [facility].
[2024-03-08] MEDS: Omeprazole 40 MG CAPSULE.DR PO (07:08)
[2024-03-08 08:00] VITALS: BP 119/76; PULSE 90; RESP 16; TEMP 37; O2SAT 99
[2024-03-08] MEDS: Fluticasone/Vilanterol 200/25 BLST.W.DEV 1 PUFF INHALE (08:16)
[2024-03-08] MEDS: Gabapentin 100 MG CAPSULE 200 MG PO (08:17)
[2024-03-08] MEDS: methADONE HCl 20 MG/2 ML ORAL.CONC 140 MG PO (08:18)
[2024-03-08 08:20] VITALS: BP 119/76
[2024-03-08] MEDS: cloNIDine HCL 0.2 MG TABLET PO ×3 (08:20→20:24)
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
[2024-03-08] MEDS: Nicotine 21 MG PATCH.TD24 TRANSDERMA (09:44)
--- NOTE | 2024-03-08 12:23 | HO.PM.IMCN ---
History of Present Illness Data of Consult Service Date: 03/08/24 Requesting physician: Caitlin Lujan Primary Care Provider: Unknown Physician HPI Reason for consult: Medical H and P 28-year-old male with history of mild intermittent asthma, polysubstance abuse admitted to adult Psychiatry with consult placed to hospitalist service for medical H& P. The patient was admitted to [facility] from 03/03-03/07 following what patient describes as an unintentional overdose. He states he had been sober from alcohol and drugs for a long period but relapsed. He drank a significant amount of alcohol and inhaled a bag of ?dope? but is unsure what was actually in the bag. On arrival to the ED, there was concern about hydroxyzine and possibly mirtazapine overdose and was ultimately intubated for airway protection. Was successfully extubated on 03/04. U tox was positive for benzodiazepines, fentanyl, methadone, opiates, and THC. He was treated with phenobarbital for possible alcohol withdrawal though again denies regular alcohol use. Again, denies any SI/HI but was evaluated by Psychiatry recommending psychiatric admission. The patient does report he received several doses of Haldol with symptoms of dystonia resulting and received Cogentin. He states he had similar symptoms with Zyprexa and was previously on Cogentin. Today he is reporting black soft stool. NO BRB, abd pain, nausea, vomiting, watery diarrhea. Denies iron or pepto bismal intake. H/H 14/40.5% at [facility]. He is already on PPI. He is also reporting chronic left calf pain and anterior tibia pain that is long standing but he is concerned about occult fracture. He is ambulate but reports significant ttp. Unchanged but persistent. No recent injury. Review of Systems Review of Systems: General: No fevers, malaise, unintentional weight loss HEENT: No blurred vision, diplopia. No sore throat, nasal congestion, rhinorrhea, sinus pain, ear pain Cardiovascular: No chest pain, palpitations, or leg edema Respiratory: No shortness of breath, wheezing, cough GI: +dark stools, +soft stool. No abdominal pain, nausea, vomiting, diarrhea, constipation, hematochezia : No dysuria, hematuria, increased urinary frequency, decreased urinary output MSK: No myalgia, back pain. +LLE pain, +calf tenderness Neuro: No headaches, weakness, paresthesias Skin: No rashes or lesions [facility] Medical History Asthma Polysubstance abuse Social History Household Members: Unknown / Unable to assess Housing: Unknown / Unable to assess Alcohol intake: current Alcohol type: hard liquor Patient Tobacco Use Status: Refuse Tobacco use screen Use of substances other than those prescribed or required for medical reasons: Refusing to respond Currently Displaying Signs/Symptoms of Drug Intoxication Withdrawal: No Advance Directives: No Advance Directives Information Provided: No Do you have thoughts of harming others: None Do you have a plan to hurt others: No Plan Recently lost weight without trying: No Meds Allergies Allergy/AdvReac Type Severity Reaction Status Date / Time chlorpromazine Allergy Hives Verified 12/24/22 14:26 [From Thorazine] haloperidol [From Haldol] Allergy Hives Verified 12/24/22 14:27 Active Medications: Current Medications Acetaminophen (Acetaminophen 325 Mg Tablet) 650 mg PO Q6H PRN PRN Reason: Headache/Pain Mild Scale (1-3) Al Hydroxide/Mg Hydroxide (Magnesium Hydrox/Alum Hydrox 30 Ml Oral.Susp) 30 ml PO Q6H PRN PRN Reason: Heartburn/Nausea Albuterol Sulfate (Albuterol Sulfate 90 Mcg 8 Gm Inhaler) 2 puff INHALE RQ6H PRN PRN Reason: Wheezing Benztropine Mesylate (Benztropine Mesylate 1 Mg Tablet) 1 mg PO BID PRN PRN Reason: dystonia Clonidine HCl (Clonidine Hcl 0.2 Mg Tablet) 0.2 mg PO TID [facility]; Protocol Last Admin: 03/08/24 08:20 Dose: 0.2 mg Fluticasone/Vilanterol (Fluticasone/Vilanterol 200/25 Blst.W.Dev) 1 puff INHALE RDAILY [facility] Last Admin: 03/08/24 08:16 Dose: 1 puff Gabapentin (Gabapentin 600 Mg Tablet) 600 mg PO TID [facility] Lorazepam (Lorazepam 0.5 Mg Tablet) 0.5 mg PO BEDTIME PRN PRN Reason: anxiety, insomnia Last Admin: 03/07/24 20:46 Dose: 0.5 mg Magnesium Hydroxide (Milk Of Magnesia 30 Ml Oral.Susp) 30 ml PO DAILY PRN PRN Reason: Constipation Methadone HCl (Methadone Hcl 20 Mg/2 Ml Oral.Conc) 140 mg PO DAILY [facility] Last Admin: 03/08/24 08:18 Dose: 140 mg Nicotine (Nicotine 21 Mg Patch.Td24) 21 mg TRANSDERMA DAILY [facility] Last Admin: 03/08/24 09:44 Dose: 21 mg Nicotine Polacrilex (Nicotine Polacrilex 2 Mg Gum) 2 mg BUCCAL Q1H PRN PRN Reason: Nicotine Cravings Nicotine Polacrilex (Nicotine Polacrilex 2 Mg Gum) 2 mg BUCCAL Q1H PRN PRN Reason: Nicotine Cravings Omeprazole (Omeprazole 40 Mg Capsule.Dr) 40 mg PO DAILY@0630 [facility] Last Admin: 03/08/24 07:08 Dose: 40 mg Trazodone HCl (Trazodone Hcl 50 Mg Tablet) 50 mg PO BEDTIME MRX1 PRN PRN Reason: Insomnia Last Admin: 03/07/24 20:46 Dose: 50 mg Home Medications ?Medication ?Instructions ?Recorded ?Confirmed ?Last Taken ?Type albuterol sulfate 90 mcg/actuation 2 puff inhalation Q4H PRN 12/23/22 03/07/24 Unknown History aerosol inhaler (ProAir HFA) Shortness Of Breath Or Wheezing clonidine HCl 0.2 mg tablet 0.2 mg PO TID PRN anxiety 12/23/22 03/07/24 12/23/22 History gabapentin 800 mg tablet 800 mg PO TID 12/23/22 03/07/24 Unknown History mirtazapine 15 mg tablet 15 mg PO BEDTIME insomnia 12/23/22 03/07/24 12/22/22 History methadone 10 mg/mL oral 140 mg PO DAILY 12/24/22 03/07/24 03/07/24 08:00 History concentrate (Methadone Intensol) olanzapine 10 mg tablet 10 mg PO BEDTIME 03/07/24 03/07/24 Unknown History Physical Exam Vital Signs and Narrative: Vital Signs: Last Vital Signs Temp 98.6 F 03/08/24 08:00 Pulse 90 03/08/24 08:00 Resp 16 03/08/24 08:00 BP 119/76 03/08/24 08:20 Pulse Ox 99 03/08/24 08:00 O2 Del Method Room Air 03/08/24 08:00 BMI result Body Mass Index 29.9 Constitutional - Awake and Alert, No apparent distress Eyes - PERRLA, EOMI Cardiovascular - S1S2, RRR, No edema Respiratory - Normal lung expansion, Normal respiratory effort, No respiratory distress, CTA bilaterally Gastrointestinal - NT / ND; +BS; No rebound or guarding - No CVA tenderness Extremities - left sided calf tenderness, no swelling Musculoskeletal - Normal inspection, normal ROM. Focal ttp distal anterior tibia, no obvious osseous abnormality or crepitus Skin - Warm/Dry Neurological - Alert & oriented x3, CN II-XII in tact, 5/5 strength BUE and BLE Psychological - Appropriate affect Assessment and Plan (1) Routine medical exam: Status: Acute (2) Chronic pain of left lower extremity: Status: Acute (3) Tenderness of left calf: Status: Acute (4) Dark stools: Status: Acute Plan 28-year-old male with history of mild intermittent asthma, polysubstance abuse admitted to adult Psychiatry with consult placed to hospitalist service for medical H& P. #Mood disorder/?intentional OD -denies intentional OD, reports dope may have been laced with unknown substances -?dystonia following haldol administration. Plan per psychiatry -plan per psychiatry #Dark stool -no abd pain, n/v/d, brbpr -check stool occult blood now -recheck cbc, bmp now -continue ppi -will continue following #Distal L tibia pain -reports remote injury with ongoing significant ttp, able to ambulate -check xr L tib/fib #Chronic L calf tenderness -no sob/chest pain -check venous duplex llr #Polysubstance abuse -U tox positive for benzos, fentanyl, methadone, opiates, THC -plan per Psychiatry/addiction Medicine team -continue methadone # mild intermittent asthma -no acute exacerbation, albuterol p.r.n. Thank you for this consult. Will continue following.
[2024-03-08 13:19] LABS: MANUAL DIFF FLAG NO
[2024-03-08 13:22] LABS: Basophils Absolute Auto 0.1 X10*3/uL (0.0-0.2); Basophils Percent Auto 0.7 % (0-2); Eosinophils Percent Auto 0.5 % (0-4); Hematocrit 44.8 % (42.0-52.0); Hemoglobin 15.6 g/dl (14.0-18.0); Imm Gran Abs Auto 0.02 X10*3/uL (0.00-0.03); Imm Gran Pct Auto 0.2 % (0.0-0.4); Lymphocytes Absolute Auto 2.1 X10*3/uL (1.2-4.9); Lymphocytes Percent Auto 24.4 % (20-40); Mean Corpuscular HGB Conc 34.8 g/dl (31.0-36.0); Mean Corpuscular Hemoglobin 28.8 pg (27.0-33.0); Mean Corpuscular Volume 82.8 fL (80.0-98.0); Mean Platelet Volume 8.8 fL (9.4-12.4); Monocytes Absolute Auto 0.4 X10*3/uL (0.1-1.2); Monocytes Percent Auto 4.4 % (2-11); Neutrophils Percent Auto 69.8 % (45-73); Platelet Count 285 X10*3/uL (160-400); Red Blood Count 5.41 X10*6/uL (4.60-5.80); White Blood Count 8.6 X10*3/uL (4.8-10.8)
[2024-03-08 13:41] LABS: Alanine Aminotransferase 19 U/L (0-40); Albumin Level 4.7 g/dL (3.5-5.0); Alkaline Phosphatase 82 U/L (39-117); Anion Gap 13 (12-20); Aspartate Amino Transferase 19 U/L (5-37); Bilirubin Total 0.5 mg/dL (0.0-1.0); Blood Urea Nitrogen 13 mg/dL (9-16); Calcium 9.8 mg/dL (8.4-10.2); Carbon Dioxide 24 mmol/L (22-29); Chloride 103 mmol/L (96-108); Cholesterol 173 mg/dL (<200); Creatinine Clr Calc Pharmacy 114.3; Estimated Glomerular Filt Rate > 60; Glucose Random 109 mg/dL (60-115); HDL Cholesterol 48 mg/dL (>40); LDL Cholesterol Calculated 99 mg/dL (<100); Potassium 4.3 mmol/L (3.3-5.1); Sodium 136 mmol/L (135-145); Total Protein 7.7 g/dL (6.5-8.0); Triglycerides 133 mg/dL (<150)
[2024-03-08 14:57] VITALS: BP 126/78; PULSE 75
[2024-03-08 14:58] VITALS: BP 126/78
[2024-03-08] MEDS: Gabapentin 600 MG TABLET PO ×2 (14:59→20:24)
[2024-03-08 20:15] VITALS: BP 114/72; PULSE 78; RESP 16; TEMP 36.7; O2SAT 98
[2024-03-08] MEDS: traZODone HCL 50 MG TABLET PO (20:24)
[2024-03-08] MEDS: LORazepam 0.5 MG TABLET PO (20:24)
[2024-03-09] MEDS: traZODone HCL 50 MG TABLET PO ×2 (01:40→21:01)
[2024-03-09] MEDS: Omeprazole 40 MG CAPSULE.DR PO (06:32)
[2024-03-09 08:00] VITALS: BP 132/84; PULSE 81; RESP 16; TEMP 36.8; O2SAT 98
[2024-03-09] MEDS: Nicotine 21 MG PATCH.TD24 TRANSDERMA (08:14)
[2024-03-09] MEDS: Gabapentin 600 MG TABLET PO (08:15)
[2024-03-09 08:16] VITALS: BP 132/84
[2024-03-09] MEDS: cloNIDine HCL 0.2 MG TABLET PO ×3 (08:16→21:01)
[2024-03-09] MEDS: Fluticasone/Vilanterol 200/25 BLST.W.DEV 1 PUFF INHALE (08:17)
[2024-03-09] MEDS: methADONE HCl 20 MG/2 ML ORAL.CONC 140 MG PO (08:18)
[2024-03-09] MEDS: Nicotine Polacrilex 2 MG GUM BUCCAL ×3 (08:20→18:49)
[2024-03-09] MEDS: Acetaminophen 325 MG TABLET 650 MG PO ×2 (09:27→15:08)
--- NOTE | 2024-03-09 12:00 | P.PNPSI_ITS ---
Subjective Subjective Date of Service: 03/09/24 Reason For Visit: Generalized anxiety disorder Subjective Notes: Conditional Voluntary Interim History: 28yo s/p OD alcohol/poly sub doing ok - some trouble sleeping woke up at 3 am restless- wonders if methadone different - Discussed with pt that gabapentin at 600tid instead of 800mg will inc back today- and give prn olanzapine might make feel more like usual for him- Continues to deny SI saying od was a mistake Medication Compliance: Yes Side effects from medications: No Attending Groups: Intermittent Review of Systems Acute medical concerns: No Medical Review of Systems: unchanged Mental Status Exam Mental Status Exam Patient Appearance: Unkempt (again just his hair) Patient Orientation: Person, Place, Time and Situation Level of Consciousness: Awake Patient Behavior: Appropriate, Cooperative and Good Eye Contact Mood Description: Anxious Affect Description: Appropriate Patient Cognition Impaired: No Ability to Follow Directions: Good Speech Pattern: Clear Hallucinations: None Delusions: Not Present Thought Process: Intact Thought Content: positive for Goal Oriented Depressive Symptoms: Difficulty Sleeping Judgement: Fair Diagnostics Vital Signs (24Hr): Vital Signs - 24 hr 03/08/24 14:57 03/08/24 14:58 03/08/24 20:15 Temperature 98.0 F Pulse Rate 75 78 Respiratory Rate 16 Blood Pressure 126/78 126/78 114/72 Pulse Oximetry 98 Oxygen Delivery Method Room Air 03/09/24 08:00 03/09/24 08:16 Temperature 98.2 F Pulse Rate 81 Respiratory Rate 16 Blood Pressure 132/84 132/84 Pulse Oximetry 98 Oxygen Delivery Method Room Air BMI result Body Mass Index 29.9 Labs 03/08/24 13:14 03/08/24 13:14 Labs: Laboratory Results - last 48 hr 03/08/24 13:14 WBC 8.6 RBC 5.41 D Hgb 15.6 D Hct 44.8 D MCV 82.8 MCH 28.8 MCHC 34.8 RDW 12.0 Plt Count 285 MPV 8.8 L Immature Gran % (Auto) 0.2 Neut % (Auto) 69.8 Lymph % (Auto) 24.4 [place] % (Auto) 4.4 Eos % (Auto) 0.5 Baso % (Auto) 0.7 Lymph # (Auto) 2.1 [place] # (Auto) 0.4 Eos # (Auto) 0.0 Baso # (Auto) 0.1 Abs Immat Gran (auto) 0.02 Absolute Neuts (auto) 6.0 Absolute Nucleated RBC 0.000 Nucleated RBC % (auto) 0.0 Sodium 136 Potassium 4.3 Chloride 103 Carbon Dioxide 24 Anion Gap 13 BUN 13 Creatinine 1.20 Estim Creat Clear Calc 114.3 Estimated GFR > 60 Random Glucose 109 Calcium 9.8 Total Bilirubin 0.5 AST 19 ALT 19 Alkaline Phosphatase 82 Total Protein 7.7 Albumin 4.7 Triglycerides 133 Cholesterol 173 LDL Cholesterol, Calc 99 HDL Cholesterol 48 Imaging Radiology Impressions: ITS Impressions Tibia/Fibula X-Ray 03/08/24 14:00 IMPRESSION: No fracture or dislocation. Surgical tacks in the proximal tibia and fibula. Venous Duplex 03/08/24 14:08 IMPRESSION: No DVT demonstrated in the left lower extremity. Medications Medications Current Medications Acetaminophen (Acetaminophen 325 Mg Tablet) 650 mg PO Q6H PRN PRN Reason: Headache/Pain Mild Scale (1-3) Last Admin: 03/09/24 09:27 Dose: 650 mg Al Hydroxide/Mg Hydroxide (Magnesium Hydrox/Alum Hydrox 30 Ml Oral.Susp) 30 ml PO Q6H PRN PRN Reason: Heartburn/Nausea Albuterol Sulfate (Albuterol Sulfate 90 Mcg 8 Gm Inhaler) 2 puff INHALE RQ6H PRN PRN Reason: Wheezing Benztropine Mesylate (Benztropine Mesylate 1 Mg Tablet) 1 mg PO BID PRN PRN Reason: dystonia Clonidine HCl (Clonidine Hcl 0.2 Mg Tablet) 0.2 mg PO TID [facility]; Protocol Last Admin: 03/09/24 08:16 Dose: 0.2 mg Fluticasone/Vilanterol (Fluticasone/Vilanterol 200/25 Blst.W.Dev) 1 puff INHALE RDAILY [facility] Last Admin: 03/09/24 08:17 Dose: 1 puff Gabapentin (Gabapentin 600 Mg Tablet) 600 mg PO TID [facility] Last Admin: 03/09/24 08:15 Dose: 600 mg Lorazepam (Lorazepam 0.5 Mg Tablet) 0.5 mg PO BEDTIME PRN PRN Reason: anxiety, insomnia Last Admin: 03/08/24 20:24 Dose: 0.5 mg Magnesium Hydroxide (Milk Of Magnesia 30 Ml Oral.Susp) 30 ml PO DAILY PRN PRN Reason: Constipation Methadone HCl (Methadone Hcl 20 Mg/2 Ml Oral.Conc) 140 mg PO DAILY [facility] Last Admin: 03/09/24 08:18 Dose: 140 mg Nicotine (Nicotine 21 Mg Patch.Td24) 21 mg TRANSDERMA DAILY [facility] Last Admin: 03/09/24 08:14 Dose: 21 mg Nicotine Polacrilex (Nicotine Polacrilex 2 Mg Gum) 2 mg BUCCAL Q1H PRN PRN Reason: Nicotine Cravings Last Admin: 03/09/24 08:20 Dose: 2 mg Nicotine Polacrilex (Nicotine Polacrilex 2 Mg Gum) 2 mg BUCCAL Q1H PRN PRN Reason: Nicotine Cravings Omeprazole (Omeprazole 40 Mg Capsule.Dr) 40 mg PO DAILY@0630 [facility] Last Admin: 03/09/24 06:32 Dose: 40 mg Trazodone HCl (Trazodone Hcl 50 Mg Tablet) 50 mg PO BEDTIME MRX1 PRN PRN Reason: Insomnia Last Admin: 03/09/24 01:40 Dose: 50 mg Allergies Allergies Allergy/AdvReac Type Severity Reaction Status Date / Time chlorpromazine Allergy Hives Verified 12/24/22 14:26 [From Thorazine] haloperidol [From Haldol] Allergy Hives Verified 03/08/24 17:30 Assessment & Plan Assessment & Plan (1) Mood disorder: Status: Acute Code(s): F39 - Unspecified mood [affective] disorder Assessment and Plan: 03/09 adding prn olanzapine 2.5mg (2) Polysubstance abuse: Status: Acute Code(s): F19.10 - Other psychoactive substance abuse, uncomplicated (3) Overdose: Status: Acute Code(s): T50.901A - Poisoning by unspecified drugs, medicaments and biological substances, accidental (unintentional), initial encounter Plan 28-year-old male with history of mild intermittent asthma, polysubstance abuse admitted to adult Psychiatry with consult placed to hospitalist service for medical H& P. #Mood disorder/?intentional OD -denies intentional OD, reports dope may have been laced with unknown substances -?dystonia following haldol administration. Plan per psychiatry -plan per psychiatry #Dark stool -no abd pain, n/v/d, brbpr -check stool occult blood now -recheck cbc, bmp now -continue ppi -will continue following #Distal L tibia pain -reports remote injury with ongoing significant ttp, able to ambulate -check xr L tib/fib #Chronic L calf tenderness -no sob/chest pain -check venous duplex llr #Polysubstance abuse -U tox positive for benzos, fentanyl, methadone, opiates, THC -plan per Psychiatry/addiction Medicine team -continue methadone # mild intermittent asthma -no acute exacerbation, albuterol p.r.n. Thank you for this consult. Will continue following. 03/09 work up above was negative Patient educated on: medication risk/benefits Informed Consent: understands Reason for continued inpatient stay Substantial Risk for: rapid decompensation Time Spent With Patient Time: Total time managing care of this patient today ____ minutes.
[2024-03-09 14:26] VITALS: BP 122/68
[2024-03-09] MEDS: OLANZapine 2.5 MG TABLET PO ×2 (14:26→21:01)
[2024-03-09 14:50] VITALS: BP 122/68; PULSE 82; O2SAT 98
[2024-03-09] MEDS: Gabapentin 400 MG CAPSULE 800 MG PO ×2 (15:06→21:01)
[2024-03-09 20:00] VITALS: BP 123/72; PULSE 81; RESP 16; TEMP 36.5; O2SAT 99
[2024-03-09] MEDS: LORazepam 0.5 MG TABLET PO (21:01)
[2024-03-09] MEDS: Mirtazapine 15 MG TABLET PO (21:01)
[2024-03-10] MEDS: Omeprazole 40 MG CAPSULE.DR PO (06:17)
[2024-03-10] MEDS: Acetaminophen 325 MG TABLET 650 MG PO ×3 (06:21→20:28)
[2024-03-10 08:00] VITALS: BP 136/84; PULSE 89; RESP 18; TEMP 36.2; O2SAT 98
[2024-03-10 08:14] VITALS: BP 136/84
[2024-03-10] MEDS: cloNIDine HCL 0.2 MG TABLET PO ×3 (08:14→20:25)
[2024-03-10] MEDS: Nicotine 21 MG PATCH.TD24 TRANSDERMA (08:14)
[2024-03-10] MEDS: Gabapentin 400 MG CAPSULE 800 MG PO ×3 (08:15→20:23)
[2024-03-10] MEDS: OLANZapine 2.5 MG TABLET PO ×3 (08:15→20:24)
[2024-03-10] MEDS: Nicotine Polacrilex 2 MG GUM BUCCAL ×3 (08:15→18:31)
[2024-03-10] MEDS: methADONE HCl 20 MG/2 ML ORAL.CONC 140 MG PO (08:15)
[2024-03-10] MEDS: Fluticasone/Vilanterol 200/25 BLST.W.DEV 1 PUFF INHALE (08:59)
[2024-03-10 14:53] VITALS: BP 130/77
--- NOTE | 2024-03-10 15:53 | HO.PSYCHPN ---
Subjective Subjective Date of Service: 03/10/24 Reason For Visit: Generalized anxiety disorder Subjective Notes: 3 Day Interim History: Reviewed with Dr. Newton. Pt reports doing really well ; pt stated, I'm happy that I got back on the remeron because it helps me sleep. I didn't intentionally overdose. I was upset since Father's Day because I didn't get to see my son, so I started drinking and sniffed two bags. I've been sober since October. I have no desire to hurt myself or anyone else . Pt reports having outpatient providers through [facility] and now [facility] [employer]. He denies SI/HI/VH/AH. Pt reports sleeping well last night. 3 day up on 03/12/24. Medication Compliance: Yes Side effects from medications: No Attending Groups: Yes Review of Systems Constitutional: Reports as per HPI Eyes: Reports as per HPI Reports as per HPI Cardiovascular: Reports as per HPI Respiratory: Reports as per HPI Gastrointestinal: Reports as per HPI Genitourinary: Reports as per HPI Musculoskeletal: Reports as per HPI Skin/Breast: Reports as per HPI Reports as per HPI Psychiatric: Reports as per HPI Endocrine: Reports as per HPI Hematologic/Lymphatic: Reports as per HPI Allergic/Immunologic: Reports as per HPI Mental Status Exam Mental Status Exam Narrative: Pt is alert and oriented; behavior is cooperative and calm; dressed in casual attire; mood is described as good ; eye contact appropriate; Speech is normal rate, volume and not pressured; thought process is organized and goal directed; Thought content is on tx; otherwise pertinent to relevant topics and without any delusional content, paranoid ideations or grandiosity; denies SI/HI/VH/AH. Diagnostics Vital Signs (24Hr): Vital Signs - 24 hr 03/09/24 20:00 03/10/24 08:00 03/10/24 08:14 Temperature 97.7 F 97.1 F Pulse Rate 81 89 Respiratory Rate 16 18 Blood Pressure 123/72 136/84 136/84 Pulse Oximetry 99 98 Oxygen Delivery Method Room Air Room Air 03/10/24 14:53 Temperature Pulse Rate Respiratory Rate Blood Pressure 130/77 Pulse Oximetry Oxygen Delivery Method BMI result Body Mass Index 29.9 Labs 03/08/24 13:14 03/08/24 13:14 Imaging Radiology Impressions: ITS Impressions Tibia/Fibula X-Ray 03/08/24 14:00 IMPRESSION: No fracture or dislocation. Surgical tacks in the proximal tibia and fibula. Venous Duplex 03/08/24 14:08 IMPRESSION: No DVT demonstrated in the left lower extremity. Medications Medications Current Medications Acetaminophen (Acetaminophen 325 Mg Tablet) 650 mg PO Q6H PRN PRN Reason: Headache/Pain Mild Scale (1-3) Last Admin: 03/10/24 12:23 Dose: 650 mg Al Hydroxide/Mg Hydroxide (Magnesium Hydrox/Alum Hydrox 30 Ml Oral.Susp) 30 ml PO Q6H PRN PRN Reason: Heartburn/Nausea Albuterol Sulfate (Albuterol Sulfate 90 Mcg 8 Gm Inhaler) 2 puff INHALE RQ6H PRN PRN Reason: Wheezing Benztropine Mesylate (Benztropine Mesylate 1 Mg Tablet) 1 mg PO BID PRN PRN Reason: dystonia Clonidine HCl (Clonidine Hcl 0.2 Mg Tablet) 0.2 mg PO TID [facility]; Protocol Last Admin: 03/10/24 14:53 Dose: 0.2 mg Fluticasone/Vilanterol (Fluticasone/Vilanterol 200/25 Blst.W.Dev) 1 puff INHALE RDAILY [facility] Last Admin: 03/10/24 08:59 Dose: 1 puff Gabapentin (Gabapentin 400 Mg Capsule) 800 mg PO TID [facility] Last Admin: 03/10/24 14:53 Dose: 800 mg Lorazepam (Lorazepam 0.5 Mg Tablet) 0.5 mg PO BEDTIME PRN PRN Reason: anxiety, insomnia Last Admin: 03/09/24 21:01 Dose: 0.5 mg Magnesium Hydroxide (Milk Of Magnesia 30 Ml Oral.Susp) 30 ml PO DAILY PRN PRN Reason: Constipation Methadone HCl (Methadone Hcl 20 Mg/2 Ml Oral.Conc) 140 mg PO DAILY [facility] Last Admin: 03/10/24 08:15 Dose: 140 mg Mirtazapine (Mirtazapine 15 Mg Tablet) 15 mg PO BEDTIME [facility] Last Admin: 03/09/24 21:01 Dose: 15 mg Nicotine (Nicotine 21 Mg Patch.Td24) 21 mg TRANSDERMA DAILY [facility] Last Admin: 03/10/24 08:14 Dose: 21 mg Nicotine Polacrilex (Nicotine Polacrilex 2 Mg Gum) 2 mg BUCCAL Q1H PRN PRN Reason: Nicotine Cravings Last Admin: 03/10/24 14:39 Dose: 2 mg Nicotine Polacrilex (Nicotine Polacrilex 2 Mg Gum) 2 mg BUCCAL Q1H PRN PRN Reason: Nicotine Cravings Olanzapine (Olanzapine 2.5 Mg Tablet) 2.5 mg PO Q6H PRN PRN Reason: anxiety/restlessness Last Admin: 03/10/24 14:59 Dose: 2.5 mg Omeprazole (Omeprazole 40 Mg Capsule.Dr) 40 mg PO DAILY@0630 [facility] Last Admin: 03/10/24 06:17 Dose: 40 mg Trazodone HCl (Trazodone Hcl 50 Mg Tablet) 50 mg PO BEDTIME MRX1 PRN PRN Reason: Insomnia Last Admin: 03/09/24 21:01 Dose: 50 mg Allergies Allergies Allergy/AdvReac Type Severity Reaction Status Date / Time chlorpromazine Allergy Hives Verified 12/24/22 14:26 [From Thorazine] haloperidol [From Haldol] Allergy Hives Verified 03/08/24 17:30 Assessment & Plan Assessment & Plan (1) Mood disorder: Status: Acute Code(s): F39 - Unspecified mood [affective] disorder (2) Polysubstance abuse: Status: Acute Code(s): F19.10 - Other psychoactive substance abuse, uncomplicated (3) Overdose: Status: Acute Code(s): T50.901A - Poisoning by unspecified drugs, medicaments and biological substances, accidental (unintentional), initial encounter Plan 03/09 adding prn olanzapine 2.5mg 03/10: Pt reports doing really well ; pt stated, I'm happy that I got back on the remeron because it helps me sleep. I didn't intentionally overdose. I was upset since Father's Day because I didn't get to see my son, so I started drinking and sniffed two bags. I've been sober since October. I have no desire to hurt myself or anyone else . Pt reports having outpatient providers through [facility] and now [facility] [employer]. He denies SI/HI/VH/AH. Pt reports sleeping well last night. 3 day up on 03/12/24. Patient educated on: diagnosis, medication risk/benefits, substance abuse and therapeutic strategies Informed Consent: understands Reason for continued inpatient stay Substantial Risk for: med/psych decompensation Time Spent With Patient Time: Total time managing care of this patient today _20___ minutes.
[2024-03-10 20:00] VITALS: BP 108/70; PULSE 76; RESP 16; TEMP 36.7; O2SAT 97
[2024-03-10] MEDS: Mirtazapine 15 MG TABLET PO (20:25)
[2024-03-10] MEDS: LORazepam 0.5 MG TABLET PO (20:25)
[2024-03-11] MEDS: Omeprazole 40 MG CAPSULE.DR PO (06:17)
[2024-03-11] MEDS: Acetaminophen 325 MG TABLET 650 MG PO ×2 (06:25→15:06)
[2024-03-11 07:40] VITALS: BP 129/82; PULSE 81; RESP 16; TEMP 36.9; O2SAT 97
[2024-03-11] MEDS: Nicotine 21 MG PATCH.TD24 TRANSDERMA (08:06)
[2024-03-11 08:07] VITALS: BP 129/82
[2024-03-11] MEDS: cloNIDine HCL 0.2 MG TABLET PO ×3 (08:07→20:17)
[2024-03-11] MEDS: Gabapentin 400 MG CAPSULE 800 MG PO ×3 (08:08→20:19)
[2024-03-11] MEDS: Fluticasone/Vilanterol 200/25 BLST.W.DEV 1 PUFF INHALE (08:09)
[2024-03-11] MEDS: methADONE HCl 20 MG/2 ML ORAL.CONC 140 MG PO (08:10)
--- NOTE | 2024-03-11 08:59 | P.PNPSI_ITS ---
Subjective Subjective Date of Service: 03/11/24 Reason For Visit: Generalized anxiety disorder Subjective Notes: 3 Day Interim History: Reviewed with Dr. Newton. T/W and director social, Yazmin, met with patient together. Pt reports feeling good today; pt stated, I'm not interested in going to a program after here. I know what I have to do to stay sober, it's just doing it. I feel better being at the [facility] than going to sober living because people at sober living are always trying to get high. I want to stay clean to see my son. what happened was not a suicide attempt . Pt reports he plans on following up with his outpatient providers, going to the recovery center in [place] and attend parent classes through [facility]. denies SI/HI/VH/AH. Plan to discharge pt on 3 day notice. Medication Compliance: Yes Side effects from medications: No Attending Groups: Yes Review of Systems Constitutional: Reports as per HPI Eyes: Reports as per HPI Reports as per HPI Cardiovascular: Reports as per HPI Respiratory: Reports as per HPI Gastrointestinal: Reports as per HPI Genitourinary: Reports as per HPI Musculoskeletal: Reports as per HPI Skin/Breast: Reports as per HPI Reports as per HPI Psychiatric: Reports as per HPI Endocrine: Reports as per HPI Hematologic/Lymphatic: Reports as per HPI Allergic/Immunologic: Reports as per HPI Mental Status Exam Mental Status Exam Narrative: Pt is alert and oriented; behavior is cooperative and calm; dressed in casual attire; mood is described as good ; eye contact appropriate; Speech is normal rate, volume and not pressured; thought process is organized and goal directed; Thought content is on tx; otherwise pertinent to relevant topics and without any delusional content, paranoid ideations or grandiosity; denies SI/HI/VH/AH. Diagnostics Vital Signs (24Hr): Vital Signs - 24 hr 03/10/24 14:53 03/10/24 20:00 03/11/24 07:40 Temperature 98.1 F 98.4 F Pulse Rate 76 81 Respiratory Rate 16 16 Blood Pressure 130/77 108/70 129/82 Pulse Oximetry 97 97 Oxygen Delivery Method Room Air Room Air 03/11/24 08:07 Temperature Pulse Rate Respiratory Rate Blood Pressure 129/82 Pulse Oximetry Oxygen Delivery Method BMI result Body Mass Index 29.9 Labs 03/08/24 13:14 03/08/24 13:14 Imaging Radiology Impressions: ITS Impressions Tibia/Fibula X-Ray 03/08/24 14:00 IMPRESSION: No fracture or dislocation. Surgical tacks in the proximal tibia and fibula. Venous Duplex 03/08/24 14:08 IMPRESSION: No DVT demonstrated in the left lower extremity. Medications Medications Current Medications Acetaminophen (Acetaminophen 325 Mg Tablet) 650 mg PO Q6H PRN PRN Reason: Headache/Pain Mild Scale (1-3) Last Admin: 03/11/24 06:25 Dose: 650 mg Al Hydroxide/Mg Hydroxide (Magnesium Hydrox/Alum Hydrox 30 Ml Oral.Susp) 30 ml PO Q6H PRN PRN Reason: Heartburn/Nausea Albuterol Sulfate (Albuterol Sulfate 90 Mcg 8 Gm Inhaler) 2 puff INHALE RQ6H PRN PRN Reason: Wheezing Benztropine Mesylate (Benztropine Mesylate 1 Mg Tablet) 1 mg PO BID PRN PRN Reason: dystonia Clonidine HCl (Clonidine Hcl 0.2 Mg Tablet) 0.2 mg PO TID REPLACED BY [facility]; Protocol Last Admin: 03/11/24 08:07 Dose: 0.2 mg Fluticasone/Vilanterol (Fluticasone/Vilanterol 200/25 Blst.W.Dev) 1 puff INHALE RDAILY REPLACED BY [facility] Last Admin: 03/11/24 08:09 Dose: 1 puff Gabapentin (Gabapentin 400 Mg Capsule) 800 mg PO TID REPLACED BY [facility] Last Admin: 03/11/24 08:08 Dose: 800 mg Lorazepam (Lorazepam 0.5 Mg Tablet) 0.5 mg PO BEDTIME PRN PRN Reason: anxiety, insomnia Last Admin: 03/10/24 20:25 Dose: 0.5 mg Magnesium Hydroxide (Milk Of Magnesia 30 Ml Oral.Susp) 30 ml PO DAILY PRN PRN Reason: Constipation Methadone HCl (Methadone Hcl 20 Mg/2 Ml Oral.Conc) 140 mg PO DAILY REPLACED BY [facility] Last Admin: 03/11/24 08:10 Dose: 140 mg Mirtazapine (Mirtazapine 15 Mg Tablet) 15 mg PO BEDTIME REPLACED BY [facility] Last Admin: 03/10/24 20:25 Dose: 15 mg Nicotine (Nicotine 21 Mg Patch.Td24) 21 mg TRANSDERMA DAILY REPLACED BY [facility] Last Admin: 03/11/24 08:06 Dose: 21 mg Nicotine Polacrilex (Nicotine Polacrilex 2 Mg Gum) 2 mg BUCCAL Q1H PRN PRN Reason: Nicotine Cravings Last Admin: 03/10/24 18:31 Dose: 2 mg Nicotine Polacrilex (Nicotine Polacrilex 2 Mg Gum) 2 mg BUCCAL Q1H PRN PRN Reason: Nicotine Cravings Olanzapine (Olanzapine 2.5 Mg Tablet) 2.5 mg PO Q6H PRN PRN Reason: anxiety/restlessness Last Admin: 03/10/24 20:24 Dose: 2.5 mg Omeprazole (Omeprazole 40 Mg Capsule.Dr) 40 mg PO DAILY@0630 JAKOB Last Admin: 03/11/24 06:17 Dose: 40 mg Trazodone HCl (Trazodone Hcl 50 Mg Tablet) 50 mg PO BEDTIME MRX1 PRN PRN Reason: Insomnia Last Admin: 03/09/24 21:01 Dose: 50 mg Allergies Allergies Allergy/AdvReac Type Severity Reaction Status Date / Time chlorpromazine Allergy Hives Verified 12/24/22 14:26 [From Thorazine] haloperidol [From Haldol] Allergy Hives Verified 03/08/24 17:30 Assessment & Plan Assessment & Plan (1) Mood disorder: Status: Acute Code(s): F39 - Unspecified mood [affective] disorder (2) Polysubstance abuse: Status: Acute Code(s): F19.10 - Other psychoactive substance abuse, uncomplicated (3) Overdose: Status: Acute Code(s): T50.901A - Poisoning by unspecified drugs, medicaments and biological substances, accidental (unintentional), initial encounter Plan 03/09 adding prn olanzapine 2.5mg 03/10: Pt reports doing really well ; pt stated, I'm happy that I got back on the remeron because it helps me sleep. I didn't intentionally overdose. I was upset since Father's Day because I didn't get to see my son, so I started drinking and sniffed two bags. I've been sober since October. I have no desire to hurt myself or anyone else . Pt reports having outpatient providers through [facility] and now [facility]. He denies SI/HI/VH/AH. Pt reports sleeping well last night. 3 day up on 03/12/24. 03/11: T/W and director social, Yazmin, met with patient together. Pt reports feeling good today; pt stated, I'm not interested in going to a program after here. I know what I have to do to stay sober, it's just doing it. I feel better being at the [facility] than going to sober living because people at sober living are always trying to get high. I want to stay clean to see my son. what happened was not a suicide attempt . Pt reports he plans on following up with his outpatient providers, going to the recovery center in [place] and attend parent classes through [facility]. denies SI/HI/VH/AH. Plan to discharge pt on 3 day notice. Patient educated on: diagnosis, medication risk/benefits, substance abuse and therapeutic strategies Informed Consent: understands Reason for continued inpatient stay Substantial Risk for: stable for discharge Time Spent With Patient Time: Total time managing care of this patient today _20___ minutes.
[2024-03-11] MEDS: Nicotine Polacrilex 2 MG GUM BUCCAL ×3 (09:55→19:00)
[2024-03-11] MEDS: OLANZapine 2.5 MG TABLET PO ×2 (15:09→20:18)
[2024-03-11 15:10] VITALS: BP 138/98
[2024-03-11 20:00] VITALS: BP 118/82; PULSE 68; RESP 16; TEMP 36.8; O2SAT 99
[2024-03-11 20:17] VITALS: BP 118/82
[2024-03-11] MEDS: Mirtazapine 15 MG TABLET PO (20:17)
[2024-03-12] MEDS: Omeprazole 40 MG CAPSULE.DR PO (06:26)
[2024-03-12 07:38] VITALS: BP 135/92; PULSE 85; RESP 16; TEMP 36.4; O2SAT 100
[2024-03-12] MEDS: Fluticasone/Vilanterol 200/25 BLST.W.DEV 1 PUFF INHALE (07:51)
[2024-03-12] MEDS: Nicotine 21 MG PATCH.TD24 TRANSDERMA (07:51)
[2024-03-12] MEDS: cloNIDine HCL 0.2 MG TABLET PO (07:52)
[2024-03-12] MEDS: Gabapentin 400 MG CAPSULE 800 MG PO (07:52)
[2024-03-12] MEDS: methADONE HCl 20 MG/2 ML ORAL.CONC 140 MG PO (07:53)
[2024-03-12] MEDS: Naloxone HCl Nasal TAKE HOME 4 MG SPRAY 8 MG NOSTRILALT (08:02)
--- NOTE | 2024-03-12 09:40 | P.DS_ITS ---
DS: Providers Provider Date of Service: 03/12/24 Date of admission: 03/07/24 17:56 Date of discharge: 03/12/24 Primary care physician: Unknown Physician Attending physician on admission: Princess Trujillo Consults: 03/07/24 18:28 Consult to Care Team Routine Comment: Reason for consultation: methadone tx Consult to Hospitalist Routine Comment: Consulting Provider: Hospitalist Reason For Exam: new admit Attending physician on discharge: Kevin Newton Discharging clinician: Laxmi Mohr DS: Diagnosis Discharge Diagnosis (1) Mood disorder: Status: Acute (2) Polysubstance abuse: Status: Acute (3) Overdose: Status: Acute DS: Medications Discharge Medications Home Medications: Home Medications ?Medication ?Instructions ?Recorded ?Confirmed methadone 10 mg/mL oral 140 mg PO DAILY 12/24/22 03/07/24 concentrate (Methadone Intensol) Previous Rx's ?Medication ?Instructions ?Recorded albuterol sulfate 90 mcg/actuation 2 puff inhalation Q4H PRN 03/11/24 aerosol inhaler (ProAir HFA) Shortness Of Breath Or Wheezing 30 days #6.7 grams clonidine HCl 0.2 mg tablet 0.2 mg PO TID PRN anxiety 30 days 03/11/24 #90 tabs fluticasone furoate 200 1 inh inhalation RDAILY 30 days 03/11/24 mcg-vilanterol 25 mcg/dose #60 ea inhalation powder (Breo Ellipta) gabapentin 800 mg tablet 800 mg PO TID 30 days #90 tabs 03/11/24 mirtazapine 15 mg tablet 15 mg PO BEDTIME insomnia 30 days 03/11/24 #30 tabs omeprazole 40 mg capsule,delayed 40 mg PO DAILY@0630 30 days #30 03/11/24 release caps Mental Status Exam Mental Status Exam Narrative: Pt is alert and oriented; behavior is cooperative and calm; dressed in casual attire; mood is described as good ; eye contact appropriate; Speech is normal rate, volume and not pressured; thought process is organized and goal directed; Thought content is on tx; otherwise pertinent to relevant topics and without any delusional content, paranoid ideations or grandiosity; denies SI/HI/VH/AH. Data Data Completed and Pending Completed studies during hospitalization [Text1]: 03/08/24 13:14 WBC 8.6 RBC 5.41 D Hgb 15.6 D Hct 44.8 D MCV 82.8 MCH 28.8 MCHC 34.8 RDW 12.0 Plt Count 285 MPV 8.8 L Immature Gran % (Auto) 0.2 Neut % (Auto) 69.8 Lymph % (Auto) 24.4 [place] % (Auto) 4.4 Eos % (Auto) 0.5 Baso % (Auto) 0.7 Lymph # (Auto) 2.1 [place] # (Auto) 0.4 Eos # (Auto) 0.0 Baso # (Auto) 0.1 Abs Immat Gran (auto) 0.02 Absolute Neuts (auto) 6.0 Absolute Nucleated RBC 0.000 Nucleated RBC % (auto) 0.0 Sodium 136 Potassium 4.3 Chloride 103 Carbon Dioxide 24 Anion Gap 13 BUN 13 Creatinine 1.20 Estim Creat Clear Calc 114.3 Estimated GFR > 60 Random Glucose 109 Calcium 9.8 Total Bilirubin 0.5 AST 19 ALT 19 Alkaline Phosphatase 82 Total Protein 7.7 Albumin 4.7 Triglycerides 133 Cholesterol 173 LDL Cholesterol, Calc 99 HDL Cholesterol 48 Imaging Diagnostic Imaging Impressions Tibia/Fibula X-Ray 03/08/24 14:00 IMPRESSION: No fracture or dislocation. Surgical tacks in the proximal tibia and fibula. Venous Duplex 03/08/24 14:08 IMPRESSION: No DVT demonstrated in the left lower extremity. DS: Summary Hospital Course Hospital Course: Patient is a 28 yo SWM presents on transfer from [facility] ICU after supposedly inadvertently overdosing after relapse on drinking that started with a date- where he found it uncomfortable to not drink taking someone out- It progressed from there with xs alcohol binge and then inhaling unknown bag of drugs- He was found unresponsive at his [facility] home where he has lived for a year- He has outpaiten providers that [facility]- so he hasn't had his Adderalll that he was on prior- more needs it for work - He is re applying for DM as he hopes to get help with keeping employment- (not currently working) Last hospitalizaiton was a few years ago and he was denied DMH last time he applied inc gabapentin to 600mg watch for sedation lanie combined with methadone continue olanzapine- may have cogentin prn doubt any withdrawl likely given hx but will observe vitals recent - complicated by ? use of ketamine by EMT- resulting intubation and ICU (though this may have occurred anyway given poly sub overdose) adding prn olanzapine 2.5mg During hospital course, Pt reports doing really well ; pt stated, I'm happy that I got back on the remeron because it helps me sleep. I didn't intentionally overdose. I was upset since Father's Day because I didn't get to see my son, so I started drinking and sniffed two bags. I've been sober since October. I have no desire to hurt myself or anyone else . Pt reports having outpatient providers through [facility] and now [facility]. He denies SI/HI/VH/AH. Pt reports sleeping well last night. 3 day up on 03/12/24. T/W and socially responsible investment adviser, Yazmin, met with patient together. Pt reports feeling good today; pt stated, I'm not interested in going to a program after here. I know what I have to do to stay sober, it's just doing it. [facility] because people at sober living are always trying to get high. I want to stay clean to see my son. what happened was not a suicide attempt . Pt reports he plans on following up with his outpatient providers, going to the recovery center in [place] and attend parent classes through [facility]. denies SI/HI/VH/AH. Plan to discharge pt on 3 day notice. Pt to be picked up by his mother. Time spent discussing smoking cessation with patient: 3 to 10 minutes Status at Discharge Cognitive/behavioral status at discharge: Patient was interviewed prior to discharge and found to be fully oriented and without SI or HI. Patient has insight and demonstrates good judgment in terms of wanting to pursue treatment. Patient has a safety plan that includes presenting to the closest ER or calling 911 if feeling unsafe. Functional status at discharge: independent ambulation Overall status at discharge: patient is back to baseline Time Spent with Patient Time attestation: Total time managing care of this patient today _20___ minutes. Time spent: Less than 30 minutes Discharge Plan Discharge Anticipated Discharge Date/Time: 03/12/24 11:30 Patient Disposition: Skilled Nursing Discharge Diagnosis: MDD, cocaine use d/o Referrals: Psych Prescriber: Sherwin Chong ([facility]) [Other] - 03/28/24 1:00 pm (Appointment is in person at the office ) [facility] [Other] - 1 Week (Pt referred for walk-in services) Physician,Bj J [Primary Care Provider] - 1 Week Discharge Medications: New omeprazole 40 mg Capsule,Delayed Release(Dr/Ec) 40 mg PO DAILY@0630 30 Days Qty: 30 0RF fluticasone furoate-vilanterol [Breo Ellipta] 200-25 mcg/dose Blister With Device 1 inh inhalation RDAILY 30 Days Qty: 60 0RF Continued methadone [Methadone Intensol] 10 mg/mL Concentrate 140 mg PO DAILY clonidine HCl 0.2 mg tablet 0.2 mg PO TID PRN (Reason: anxiety) 30 Days Qty: 90 0RF gabapentin 800 mg tablet 800 mg PO TID 30 Days Qty: 90 0RF mirtazapine 15 mg tablet 15 mg PO BEDTIME 30 Days Qty: 30 0RF albuterol sulfate [ProAir HFA] 90 mcg/actuation HFA aerosol inhaler 2 puff INHALATION Q4H PRN (Reason: Shortness Of Breath Or Wheezing) 30 Days Qty: 6.7 0RF Discontinued olanzapine 10 mg tablet 10 mg PO BEDTIME Discharge Orders: Discharge Order (Routine); Ordered 03/12/24 Ordered By: Laxmi Mohr Diet: Regular diet Activity on Discharge: As tolerated Stand Alone Forms: Patient Portal Discharge page, Community Support Print Language: Occitan Care Plan Goals: Maintain mood and safe behaviors Take medications as prescribed Continue to pursue sobriety Practice coping skills Continue with outpatient providers and reach out to them as needed Health Concerns: Mood stability and behaviors Sobriety Plan of Treatment: Follow up with your PCP, psychiatric provider and other outpatient providers regarding above concerns Take medications as prescribed Assessment: Patient was interviewed prior to discharge and found to be fully oriented and without SI or HI. Patient has insight and demonstrates good judgment in terms of wanting to pursue treatment. Patient has a safety plan that includes presenting to the closest ER or calling 911 if feeling unsafe. Discharge Date/Time: 03/12/24 11:45
--- OUTSIDE RECORDS SUMMARY | 2024-03-13 06:59 | XMS_ITS | Continuity of Care Document ---
Author Organization [facility] [address] Address [address] [place] [address]- Care Team Providers Care Sales Operations Director Name Role Phone Dilshad Robins MD Primary Care Physician [phone] Encounter [facility] [place] Date(s): 12/07/22 - 12/08/[address] [address]- Discharge Disposition: Transfer to [facility] Facility Attending Physician: Vince Minaya DO Admitting Physician: Vince Minaya DO Referring Physician: Not on Staff, Referring MD Allergies, Adverse Reactions, Alerts No Known Allergies Medications Abilify 5 mg oral tablet 5 mg, 1, tablet, By Mouth, Daily, Refills 0, Maintenance, 08/01/21 15:29:00 EST, Partial fill upon patient request if the prescription is for a schedule II opioid drug. Start Date: 08/01/21 Status: Ordered acetaminophen 325 mg oral tablet 650 mg, By Mouth, Every 4 hours, PRN, Temperature Greater than 100.5, Refills 0, Maintenance, Pain , Mild, 08/01/21 15:29:00 EST, Partial fill upon patient request if the prescription is for a schedule II opioid drug. Start Date: 08/01/21 Status: Ordered cloNIDine 0.1 mg oral tablet 0.1 mg, By Mouth, 4 times a day, # 30 tablet, Refills 0, Maintenance, 07/28/21 8:47:00 EST, Partialfill upon patient request if the prescription is for a schedule II opioid drug. Start Date: 07/28/21 Status: Ordered Dulera 200 mcg-5 mcg/inh inhalation aerosol 2 puffs, Inhalation, 2 times a day, 0 Refills, Maintenance, 07/28/21 16:48:00 EST, Aerosol, Partialfill upon patient request if the prescription is for a schedule II opioid drug. Start Date: 07/28/21 Status: Ordered folic acid 1 mg oral tablet 1 mg, 1, tablet, By Mouth, Daily, Refills 0, Maintenance, 08/01/21 15:30:00 EST, Partial fill upon patient request if the prescription is for a schedule II opioid drug. Start Date: 08/01/21 Status: Ordered gabapentin 400 mg oral capsule 800 mg, Capsule, By Mouth, 12/07/22 15:00:00 EDT Start Date: 12/07/22 Stop Date: 12/07/22 Status: Completed gabapentin 400 mg oral capsule 800 mg, Capsule, By Mouth, 12/07/22 21:00:00 EDT Start Date: 12/07/22 Stop Date: 12/07/22 Status: Completed gabapentin 800 mg oral tablet 1 tablet = 800 mg, By Mouth, 3 times a day, # 270 tablet, 0 Refills, Maintenance, 07/28/21 8:47:00 EST, Tablet, Partial fill upon patient request if the prescription is for a schedule II opioid drug. Start Date: 07/28/21 Status: Ordered methadone 10 mg oral tablet = 130 mg, By Mouth, Daily, 0 Refills, Maintenance, 08/01/21 15:29:00 EST, Tablet, Partial fill uponpatient request if the prescription is for a schedule II opioid drug. Start Date: 08/01/21 Status: Ordered MiraLax Powder 1 pack/packet = 17 Gm, By Mouth, Daily, PRN Constipation, 0 Refills, Maintenance, 08/01/21 15:29:00EST, Powder, Partial fill upon patient request if the prescription is for a schedule II opioid drug. Start Date: 08/01/21 Status: Ordered mirtazapine 15 mg oral tablet 1 tablet = 15 mg, By Mouth, Daily at bedtime, # 30 tablet, 0 Refills, Maintenance, 07/28/21 8:47:00EST, Tablet, Partial fill upon patient request if the prescription is for a schedule II opioid drug. Start Date: 07/28/21 Status: Ordered Nicotine Gum 2 mg, Chew, Every hour, PRN, Nicotine Cravings, Refills 0, Maintenance, Other, 08/01/21 15:30:00 EST, Partial fill upon patient request if the prescription is for a schedule II opioid drug. Start Date: 08/01/21 Status: Ordered omeprazole 20 mg oral enteric coated capsule 1 capsule = 20 mg, By Mouth, Daily, # 30 capsule, 0 Refills, Maintenance, 07/28/21 16:48:00 EST, ECCapsule, Partial fill upon patient request if the prescription is for a schedule II opioid drug. Start Date: 07/28/21 Status: Ordered ProAir HFA 90 mcg/inh inhalation aerosol with adapter 1, puffs, Inhalation, Every 4 hours, PRN, # 8.5 Gm, Refills 0, Maintenance, 07/28/21 16:48:00 EST, Aerosol Start Date: 07/28/21 Status: Ordered thiamine 100 mg oral tablet 100 mg, 1, tablet, By Mouth, 2 times a day, Refills 0, Maintenance, 08/01/21 15:29:00 EST, Partial fill upon patient request if the prescription is for a schedule II opioid drug. Start Date: 08/01/21 Status: Ordered Valium 5 mg oral tablet 5 mg, 1, tablet, By Mouth, 3 times a day, Refills 0, Maintenance, 08/02/21 13:52:00 EST, Partial fill upon patient request if the prescription is for a schedule II opioid drug. Start Date: 08/02/21 Status: Ordered Vital Signs Most recent to oldest [Reference Range]: 1 2 3 Oxygen Saturation [94-100 %] 96 % (12/07/22 11:25 PM) 95 % (12/07/22 3:12 PM) 95 % (12/07/22 7:05 AM) Pulse Rate [55-90 bpm] 80 bpm (12/07/22 11:25 PM) 95 bpm *H* (12/07/22 3:12 PM) 111 bpm *H* (12/07/22 7:05 AM) Blood Pressure [90-138/55-84 mm Hg] 134/77mm Hg (12/07/22 11:25 PM) 114/79mm Hg (12/07/22 3:12 PM) 130/68mm Hg (12/07/22 7:05 AM) Respiratory Rate [16-30 br/min] 16 br/min (12/07/22 11:25 PM) 16 br/min (12/07/22 11:21 PM) 16 br/min (12/07/22 5:32 PM) Temperature [96.8-100.4 DegF] 97.7 DegF (12/07/22 11:25 PM) 98.8 DegF (12/07/22 6:49 AM) Mode of Delivery (Oxygen) Room air (12/07/22 11:25 PM) Room air (12/07/22 3:12 PM) Room air (12/07/22 7:05 AM) Blood pressure sites Arm, right (12/07/22 11:25 PM) Arm, right (12/07/22 3:12 PM) Arm, right (12/07/22 7:05 AM) Temperature Route Oral (12/07/22 11:25 PM) Oral (12/07/22 7:05 AM) Oral (12/07/22 6:49 AM) Patient Care team information Care Team Personnel Name: Dilshad Robins MD Position: [facility] General Pediatrics MD Member Role: PCP Address: Address: [address] [place] [id number] Name: Grace Vazquez RN Position: [facility] RN Supv Member Role: Primary Care Nurse Name: Bety Preciado RN Position: [facility] RN Member Role: Primary Care Nurse Name: Luz Evangelista RN Position: [facility] Onco RN Member Role: Primary Care Nurse Name: Elvia Souza RN, I Position: [facility] RN Member Role: Primary Care Nurse [facility] Attending Position: [facility] ED Attendings Patient Name: Renuka Barajas MD Position: [facility] ED Medicine MD Member Role: ED Attending Physician Address: Address: [address] [place] [address] [place] [address]- Name: Tavares Schaefer Position: [facility] ED TA [facility] Member Role: Patient Care Provider Name: Olga Lidia Goddard RN Position: [facility] ED RN W/OE and Tasks Member Role: Patient Care Provider Care Team Related Persons Name: LUZMARIA PINEDA Address: home [address] [place] [id number] Name: JOANOPALArjun VALDO Address: home [address] [place] [id number]
--- OUTSIDE RECORDS SUMMARY | 2024-03-13 06:59 | XMS_ITS | Continuity of Care Document ---
Author Organization [facility] Address [address] [place] [address]- Care Team Providers Care Fiber Artist Name Role Phone Not on Staff, PCP Primary Care Physician Unavail able Encounter [facility] [place] Date(s): 11/21/21 - 11/28/21 [facility] [address] [place] [address]- Encounter Diagnosis Vomiting(Discharge Diagnosis) - 11/21/21 Diarrhea(Discharge Diagnosis) - 11/21/21 Attending Physician: Caity Louise Allergies, Adverse Reactions, Alerts No Known Allergies [...] drug. Start Date: 08/01/21 Status: Ordered gabapentin 800 mg oral tablet 1 tablet [...] opioid drug. Start Date: 08/02/21 Status: Ordered Problem List Diagnosis Diagnosis Type Effective Dates Health Status Clini jhon Service Informant Vomiting Discharge Diagnosis 11/21/21 Diarrhea Discharge Diagnosis 11/21/21
--- OUTSIDE RECORDS SUMMARY | 2024-03-13 06:59 | XMS_ITS | Continuity of Care Document ---
Author Organization [facility] ter Address [address] [place] [id number]- Care Team Providers Care Console Attendant Name Role Phone Dilshad Robins MD Primary Care Physician [phone] Encounter [facility] [place] Date(s): 07/23/22 - 07/23/[address] [address]- Discharge Disposition: A-D/C Home Attending Physician: Radha Blackwell MD Admitting Physician: Radha Blackwell MD Referring Physician: Not on Staff, Referring MD [...] recent to oldest [Reference Range]: 1 2 Oxygen Saturation [94-100 %] 99 % (07/23/22 3:57 AM) 93 % *L* (07/23/22 1:15 AM) Pulse Rate [55-90 bpm] 76 bpm (07/23/22 3:57 AM) 78 bpm (07/23/22 1:15 AM) Blood Pressure [90-138/55-84 mm Hg] 116/ 70mm Hg (07/23/22 3:57 AM) 104/55mm Hg (07/23/22 1:15 AM) Respiratory Rate [16-30 br/min] 16 br/mi n (07/23/22 3:57 AM) 18 br/min (07/23/22 1:15 AM) Temperature [96.8-100.4 DegF] 98.0 DegF (07/23/22 3:57 AM) 98.0 DegF (07/23/22 1:15 AM) Mode of Delivery (Oxygen) Room air (07/23/22 3:57 AM) Room air (07/23/22 1:15 AM) Blood pressure sites Arm, right (07/23/22 3:57 AM) Arm, right (07/23/22 1:15 AM) Temperature Route Oral (07/23/22 3:57 AM) Oral (07/23/22 1:15 AM) Patient Care team information Personnel Name: Dilshad Robins MD Address: Address: [address] [place] [id number]
--- OUTSIDE RECORDS SUMMARY | 2024-03-13 06:59 | XMS_ITS | Continuity of Care Document ---
Author Organization [facility] ter Address [address] [place] [address]- Care Team Providers Care Field Secretary Name Role Phone Not on Staff, PCP Primary Care Physician Unavail able [place] [facility] [place] - 11/22/[address] [address]- Encounter Diagnosis Routine lab draw(Final) - 11/22/21 Discharge Disposition: A-D/C Home Attending Physician: Aminah Stewart DO Admitting Physician: Aminah Stewart DO Referring Physician: Not on Staff, Referring [...] opioid drug. Start Date: 08/02/21 Status: Ordered Zofran 4 mg oral tablet 1 tablet = 4 mg, By Mouth, Every 8 hours, PRN as needed for nausea/vomiting, # 10 tablet, 0 Refills, Acute 11/28/21 13:10:00 EDT, 11/21/21 13:10:00 EST, Tablet, [facility]/pharmacy #[id number], Partial fill upon patient request if the prescription is for a schedul... Start Date: 11/21/21 Stop Date: 11/28/21 Status: Ordered Vital Signs Most recent to oldest [Reference Range]: 1 2 3 Oxygen Saturation [94-100 %] 98 % (11/22/21 3:09 AM) 97 % (11/22/21 1:38 AM) 100 % (11/21/21 9:10 PM) Pulse Rate [55-90 bpm] 73 bpm (11/22/21 3:09 AM) 74 bpm (11/22/21 1:38 AM) 79 bpm (11/21/21 9:10 PM) Blood Pressure [90-138/55-84 mm Hg] 135/78mm Hg (11/22/21 3:09 AM) 138/78mm Hg (11/22/21 1:38 AM) 144/81mm Hg *H* (11/21/21 9:10 PM) Respiratory Rate [16-30 br/min] 17 br/min (11/22/21 3:09 AM) 17 br/min (11/22/21 1:38 AM) 18 br/min (11/21/21 9:10 PM) Temperature [96.8-100.4 DegF] 98.2 DegF (11/22/21 3:09 AM) 98.2 DegF (11/22/21 1:38 AM) 98.2 DegF (11/21/21 9:10 PM) Mode of Delivery (Oxygen) Room air (11/22/21 3:09 AM) Room air (11/22/21 1:38 AM) Room air (11/21/21 9:10 PM) Blood pressure sites Arm, right (11/22/21 3:09 AM) Arm, right (11/22/21 1:38 AM) Arm, right (11/21/21 9:10 PM) Temperature Route Oral (11/22/21 3:09 AM) Oral (11/22/21 1:38 AM) Oral (11/21/21 9:10 PM)
--- OUTSIDE RECORDS SUMMARY | 2024-03-13 06:59 | XMS_ITS | Continuity of Care Document ---
Author Organization [facility] ter Address [address] [place] [address]- Care Team Providers Care Packager Hand Name Role Phone Dilshad Robins MD Primary Care Physician [place] [facility] [place] - 08/02/[address] [address]- Encounter Diagnosis Drug abuse(Final) - 07/28/21 Drug withdrawal(Final) - 07/28/21 Nausea and vomiting(Final) - 07/28/21 Discharge Disposition: Transfer to [facility] Attending Physician: Arin Rodrigez MD Admitting Physician: Fadi Padilla MD Referring Physician: Not on Staff, Referring MD Allergies, Adverse Reactions, Alerts Substance Reaction Severity Status NKA Active Medications Abilify 5 mg oral tablet 5 [...] oral capsule 800 mg, Capsule, By Mouth, 08/02/21 15:00:00 EST Start Date: 08/02/21 Stop Date: 08/02/21 Status: Completed gabapentin 400 mg oral capsule 800 mg, Capsule, By Mouth, 08/02/21 21:00:00 EST Start Date: 08/02/21 Stop Date: 08/02/21 Status: Completed gabapentin 800 mg oral tablet [...] to oldest [Reference Range]: 1 2 3 Height 185.42 cm (08/02/21 8:28 PM) 185.42 cm (08/02/21 8:05 AM) 185.42 cm (08/01/21 7:54 PM) Weight 93.5 kg (07/28/21 5:50 PM) Oxygen Saturation [94-100 %] 100 % (08/02/21 8:28 PM) 100 % (08/02/21 8:05 AM) 100 % (08/01/21 7:54 PM) Pulse Rate [55-90 bpm] 85 bpm (08/02/21 8:28 PM) 79 bpm (08/02/21 8:05 AM) 94 bpm *H* (08/01/21 7:54 PM) Body Mass Index [18.5-24.99] 27.2 *H* (07/28/21 5:50 PM) Blood Pressure [90-138/55-84 mm Hg] 107/61mm Hg (08/02/21 8:28 PM) 119/93mm Hg (08/02/21 8:05 AM) 131/77mm Hg (08/01/21 7:54 PM) Respiratory Rate [16-30 br/min] 18 br/min (08/02/21 9:32 PM) 18 br/min (08/02/21 8:32 PM) 18 br/min (08/02/21 3:10 PM) Temperature [96.8-100.4 DegF] 97.8 DegF (08/02/21 8:28 PM) 97.3 DegF (08/02/21 8:05 AM) 98.4 DegF (08/01/21 7:54 PM) Liters per Minute 0 L/min (08/02/21 8:28 PM) Mode of Delivery (Oxygen) Room air (08/02/21 8:28 PM) Room air (08/02/21 8:05 AM) Room air (08/01/21 7:54 PM) Blood pressure sites Arm, left (08/02/21 8:28 PM) Arm, right (08/02/21 8:05 AM) Arm, left (08/01/21 7:54 PM) Temperature Route Oral (08/02/21 8:28 PM) Oral (08/02/21 8:05 AM) Oral (08/01/21 7:54 PM) Dry Weight 93.5 kg (07/28/21 5:50 PM) Weight Obtained Via Standing scale (07/28/21 5:50 PM) Dry Weight Obtained Via Standing scale (07/28/21 5:50 PM)
--- OUTSIDE RECORDS SUMMARY | 2024-03-13 06:59 | XMS_ITS | Continuity of Care Document ---
Author Organization [facility] ter Address [address] [place] [address]- Care Team Providers Care Teacher Lip Reading Name Role Phone Dilshad Robins MD Primary Care Physician [phone] Encounter [facility] Date(s): 09/02/19 - 09/02/[address] [address]- [facility] Attending Physician: Alfreda Streeter Allergies, Adverse Reactions, Alerts Substance Reaction Severity Status NKA Active
--- OUTSIDE RECORDS SUMMARY | 2024-03-13 06:59 | XMS_ITS | Continuity of Care Document ---
Author Organization [facility] Address [address] [place] [address]- Care Team Providers Care Wheel Alignment Technician Name Role Phone Dilshad Robins MD Primary Care Physician En[place] [facility] [place] 11/21/21 - 12/21/21 [facility] [address] [place] [address]- Attending Physician: Iggy Castaneda Admitting Physician: AdmtrIggy Referring Physician: Admtr, Ar8 Allergies, Adverse Reactions, Alerts No Known Allergies [...]
--- OUTSIDE RECORDS SUMMARY | 2024-03-13 06:59 | XMS_ITS | Continuity of Care Document ---
Author Organization [facility] ter Address [address] [place] [address]- Care Team Providers Care Geosciences Associate Professor Name Role Phone Julienne DANG, Dilshad Sarabia Primary Care Physician Encounter [facility] Date(s): 09/11/19 - 09/11/[address] [address]- [facility] Attending Physician: Nelson BANKS, Huyen Mott Allergies, Adverse Reactions, Alerts Substance Reaction Severity Status NKA Active
--- OUTSIDE RECORDS SUMMARY | 2024-03-13 06:59 | XMS_ITS | Continuity of Care Document ---
Author Organization [facility] Address [address] [place] [address]- Care Team Providers Care Boat Worker Name Role Phone Dilshad Robins MD Primary Care Physician [phone] Encounter [facility] [place] Date(s): 02/16/23 - 02/16/[address] [address]- Encounter Diagnosis Agitated(Final) - 02/16/23 Discharge Disposition: A-D/C Fdc, Custodial, or Shelter Fac Attending Physician: Patty Caal MD Admitting Physician: Patty Caal MD Referring Physician: Not on Staff, Referring [...] opioid drug. Start Date: 08/02/21 Status: Ordered Results Radiology Reports * Exam Date Time Procedure Performing Provider Status 02/16/23 5:[address] Head/Brain W/O Contrast Josephine Tidwell; Auth (Verified) Notes: (CT Head/Brain W/O Contrast) Reason For Exam: Headache(s) RESULT: CT Head/Brain W/O Contrast CT Head/Brain W/O Contrast INDICATION: Reason: Headache(s); Clinical Question(s): Hematoma; Order Comment: TECHNIQUE: Noncontrast head CT using axial technique and reconstructed in axial and coronal planes.Iterative reconstruction techniques are used to optimize dose and image quality. CTDIvol Head: 45.05 mGy, DLP Head: 811 mGy*cm. COMPARISON: None. FINDINGS: Logging Specialist view findings, lines and tubes: None. BRAIN AND EXTRA-AXIAL SPACES: No parenchymal hemorrhage, midline shift, or mass effect. Mcdowell-white matter differentiation is wellpreserved. No acute infarct. Negative insular ribbon and hyperdense vessel signs. Ventricles, sulci, and basilar cisterns are normal. No white matter lesions. No subarachnoid hemorrhage. No subdural or epidural collection. CALVARIUM, SKULL BASE, AND SOFT TISSUES: No fractures or suspicious bony lesions. The paranasal sinuses and mastoid air cells are clear. Visualized orbits and globes are intact. The extracranial soft tissues are unremarkable. IMPRESSION: No acute intracranial pathology. WSN: [id number] Ordering Physician: Ken Cardona Dictated By: Anibal Mullen MD Dictated Date/Time: 02/16/23 5:22 pm Reviewed By: Anibal Mullen MD Signed By: Anibal Mullen MD Signed Date/Time: 02/16/23 5:22 pm Transcribed By: LOGAN Transcribed Date/Time: 02/16/23 5:19 pm Vital Signs Most recent to oldest [Reference Range]: 1 2 3 Oxygen Saturation [94-100 %] 97 % (02/16/23 9:00 PM) 98 % (02/16/23 7:54 PM) 97 % (02/16/23 6:45 PM) Pulse Rate [55-90 bpm] 93 bpm *H* (02/16/23 9:00 PM) 89 bpm (02/16/23 7:54 PM) 90 bpm (02/16/23 6:45 PM) Blood Pressure [90-138/55-84 mm Hg] 148/79mm Hg *H* (02/16/23 9:00 PM) 133/84mm Hg (02/16/23 7:54 PM) 137/84mm Hg (02/16/23 6:45 PM) Respiratory Rate [16-30 br/min] 10 br/min *L* (02/16/23 9:00 PM) 15 br/min *L* (02/16/23 7:54 PM) 14 br/min *L* (02/16/23 6:45 PM) Temperature [96.8-100.4 DegF] 97.8 DegF (02/16/23 4:05 PM) 99 DegF (02/16/23 3:41 PM) Mode of Delivery (Oxygen) Room air (02/16/23 9:00 PM) Room air (02/16/23 7:54 PM) Room air (02/16/23 6:45 PM) Blood pressure sites Arm, left (02/16/23 6:45 PM) Arm, left (02/16/23 5:45 PM) Arm, left (02/16/23 5:26 PM) Temperature Route Rectal (02/16/23 4:05 PM) Oral (02/16/23 3:41 PM) CT Head WO contrast * BHSPowerscribe , CIS S: TRANSCRIBE Anibal Mullen MD: VERIFY Event Display: Result: Authored Date: [id number] CT Head/Brain W/O Contrast INDICATION: Reason: Headache(s); Clinical Question(s): Hematoma; Order Comment: TECHNIQUE: Noncontrast head CT using axial technique and reconstructed in axial and coronal planes.Iterative reconstruction techniques are used to optimize dose and image quality. CTDIvol Head: 45.05 mGy, DLP Head: 811 mGy*cm. COMPARISON: None. FINDINGS: Logging Specialist view findings, lines and tubes: None. BRAIN AND EXTRA-AXIAL SPACES: No parenchymal hemorrhage, midline shift, or mass effect. Mcdowell-white matter differentiation is wellpreserved. No acute infarct. Negative insular ribbon and hyperdense vessel signs. Ventricles, sulci, and basilar cisterns are normal. No white matter lesions. No subarachnoid hemorrhage. No subdural or epidural collection. CALVARIUM, SKULL BASE, AND SOFT TISSUES: No fractures or suspicious bony lesions. The paranasal sinuses and mastoid air cells are clear. Visualized orbits and globes are intact. The extracranial soft tissues are unremarkable. IMPRESSION: No acute intracranial pathology. WSN: [id number] Ordering Physician: Ken Cardona Dictated By: Anibal Mullen MD Dictated Date/Time: 02/16/23 5:22 pm Reviewed By: Anibal Mullen MD Signed By: Anibal Mullen MD Signed Date/Time: 02/16/23 5:22 pm Transcribed By: LOGAN Transcribed Date/Time: 02/16/23 5:19 pm Patient Care team information Care Team Personnel Name: Dilshad Robins MD Position: [facility] Physician - Pediatrics Member Role: PCP Address: Address: [address] [place] [address] [place], [place] [address] Name: Grace Vazquez RN Position: [facility] RN Supv Member Role: Primary Care Nurse Name: Bety Preciado RN Position: [facility] RN Member Role: Primary Care Nurse Name: Luz Evangelista RN Position: [facility] Onco RN Member Role: Primary Care Nurse Name: Elvia Souza RN, I Position: [facility] RN Member Role: Primary Care Nurse Name: Hayley Rojas RN Position: [facility] ED RN W/OE and Tasks Member Role: Patient Care Provider Name: Patty Caal MD Position: [facility] ED Medicine MD Member Role: Admitting Physician Address: Address: [address] [place] [address]- Name: Irvin Hsu MD Position: [facility] Resident Member Role: ED Resident Address: Address: [address] [place] [address]- Name: Luz Neumann Position: [facility] ED TA [facility] Member Role: Counselor Care Team Related Persons Name: LUZMARIA PINEDA Address: home [address] [place] [address] Name: VALDO TYSON Address: home [address] [place] [address]
== END 2024-03-12 11:45 | disposition home or self-care (01) | DRG 754 ==
PROVIDERS: Clinical Nurse Specialist Psychiatric/Mental Health; Physician Assistant; Admitting Provider Psychiatry & Neurology Psychiatry; Responsible Provider Registered Nurse; Visit Provider Psychiatry & Neurology Psychiatry
DX: F32.9 Major depressive disorder, single episode, unspecified (principal); F11.20 Opioid dependence, uncomplicated; M79.662 Pain in left lower leg; F19.10 Other psychoactive substance abuse, uncomplicated; T50.901A Poisoning by unspecified drugs, medicaments and biological substances, accidental (unintentional), initial encounter; J45.20 Mild intermittent asthma, uncomplicated; F41.1 Generalized anxiety disorder; Z79.51 Long term (current) use of inhaled steroids; Z79.899 Other long term (current) drug therapy
CPT/HCPCS: 36415; 73590; 80053; 80061; 85025; 93005; 93971; J0515

== ENCOUNTER → 2024-03-07 17:56 | Outpatient (BNV) | payer MEDICAID, SELFPAY | PROVIDERS: Admitting Provider Psychiatry & Neurology Psychiatry; Visit Provider Internal Medicine Cardiovascular Disease | DX: R94.31 Abnormal electrocardiogram [ECG] [EKG] (principal) | CPT/HCPCS: 93010 ==

== ENCOUNTER → 2024-03-07 17:56 | Outpatient (BNV) | payer MEDICAID, SELFPAY | PROVIDERS: Admitting Provider Psychiatry & Neurology Psychiatry; Visit Provider Physician Assistant | DX: Z00.00 Encounter for general adult medical examination without abnormal findings (principal); M79.605 Pain in left leg; G89.29 Other chronic pain; M79.662 Pain in left lower leg; R19.5 Other fecal abnormalities | CPT/HCPCS: 99222 ==

== ENCOUNTER → 2024-03-07 17:56 | Outpatient (BNV) | payer OTHER, SELFPAY | PROVIDERS: Admitting Provider Psychiatry & Neurology Psychiatry; Responsible Provider Registered Nurse; Visit Provider Registered Nurse | DX: F39 Unspecified mood [affective] disorder (principal); F19.10 Other psychoactive substance abuse, uncomplicated; T50.901A Poisoning by unspecified drugs, medicaments and biological substances, accidental (unintentional), initial encounter | CPT/HCPCS: 99231; 99232 ==